=== PATIENT | female | born 1960 | race African-American/Black ===

== ENCOUNTER → 2018-03-14 14:36 | Outpatient (CLI) | payer OTHER, MEDICAID, SELFPAY ==
[2018-03-14 15:23] LABS: Hematocrit 40.3 % (36-46); Hemoglobin 13.3 g/dL (12.0-16.0)
[2018-03-14 15:55] LABS: Blood Urea Nitrogen 12 mg/dL (7-17); Calcium 9.6 mg/dL (8.4-10.2); Carbon Dioxide 34 mmol/L (22-32); Chloride 99 mmol/L (98-107); Estimated Glomerular Filt Rate > 60.0 mL/min (>60); Glucose 92 mg/dL (70-100); HEMOLYSIS < 15 (0-50); Potassium 3.8 mmol/L (3.4-5.1); Sodium 144 mmol/L (137-145)
[2018-03-15 10:14] LABS: Hemoglobin A1C% w Est Avg Glu 5.9 % (4.0-6.0)
== END ==
PROVIDERS: Visit Provider Nurse Practitioner Family
DX: I10 Essential (primary) hypertension (principal); R60.0 Localized edema; E11.9 Type 2 diabetes mellitus without complications
CPT/HCPCS: 36415; 80048; 83036; 85014; 85018

== ENCOUNTER → 2018-05-08 11:25 | Outpatient (CLI) | payer OTHER, MEDICAID, SELFPAY ==
[2018-05-08 12:11] LABS: Add Manual Diff / Slide Review NO; Basophils Percent Auto 0.3 % (0-2); Eosinophils Percent Auto 1.7 % (2-4); Hematocrit 38.4 % (36-46); Hemoglobin 12.7 g/dL (12.0-16.0); Mean Corpuscular HGB Conc 33.1 % (30-36); Mean Corpuscular Hemoglobin 28.6 PG (26-34); Mean Corpuscular Volume 86.3 fL (80-100); Monocytes Percent Auto 9.2 % (3-14); Neutrophils Absolute Auto 4400 /uL (3000-5900); Neutrophils Percent Auto 52.8 % (50-75); Platelet Count 224 X10^3/uL (150-400); Red Blood Cell Count 4.45 X10^6/uL (4.0-5.2); Red Cell Distribution Width 15.1 % (11.6-14.8); White Blood Cell Count 8.4 X10^3/uL (4.5-11.0)
[2018-05-08 12:30] LABS: Alanine Aminotransferase 67 IU/L (9-52); Albumin 4.7 g/dL (3.5-5.0); Albumin Globulin Ratio 1.4 (1.0-2.8); Alkaline Phosphatase 211 U/L (38-126); Aspartate Aminotransferase 78 IU/L (14-36); Bilirubin Total 0.5 mg/dL (0.2-1.3); Blood Urea Nitrogen 9 mg/dL (7-17); Calcium 9.6 mg/dL (8.4-10.2); Carbon Dioxide 30 mmol/L (22-32); Chloride 101 mmol/L (98-107); Estimated Glomerular Filt Rate > 60.0 mL/min (>60); Globulin 3.4 g/dL (1.7-4.1); Glucose 93 mg/dL (70-100); HEMOLYSIS < 15 (0-50); Potassium 4.6 mmol/L (3.4-5.1); Sodium 147 mmol/L (137-145); Total Protein 8.1 g/dL (6.3-8.2)
[2018-05-08 12:49] LABS: B Type Natriuretic Peptide < 100.0 (<100)
== END ==
PROVIDERS: PCP Family Medicine; Visit Provider Family Medicine
DX: R60.0 Localized edema (principal)
CPT/HCPCS: 36415; 80053; 83880; 85025

== ENCOUNTER → 2018-05-29 14:21 | Outpatient (CLI) | payer OTHER, MEDICAID, SELFPAY ==
--- NOTE | 2018-05-29 14:22 | DI.ECHO.S_ITS ---
[facility] +---------+ : : [address] : [address] : : : : [phone] : : : : Phone: [phone]+ Echocardiogram Report + + :Name: DAVID MCCARTY Study Date: 05/29/2018 Height: 66 in : :[facility] Weight: 245 lb : : Gender: Female BSA: 2.2 m2 : :: 1960 Age: 57 yrs BP: 120/60 mmHg: :Reason For Study: edema : : Performed By: Astrid Lowry : :Referring: SUSY MCCRAY : + + Interpretation Summary The left ventricle is normal in size. The ejection fraction is estimated to be 60-65%. There has been no significant change in LVEF since the previous study. The right ventricle is at the upper limits of normal in size. The right ventricular systolic function is normal. No significant valvular pathology seen. Procedure: A two-dimensional transthoracic echocardiogram with color flow and Doppler was performed. The study quality was technically adequate. Comparison is made with the echocardiogram of 05/17/2015. The heart rate ranged between 86-91 bpm during the study. Left Ventricle: Left ventricular wall thickness is borderline increased. The left ventricle is normal in size. There is no thrombus. The ejection fraction is estimated to be 60-65%. There has been no significant change since the previous study. There are no focal wall motion abnormalities. Diastolic parameters suggest a relaxation abnormality of the left ventricle, consistent with probable normal filling pressures. Right Ventricle: The right ventricle is at the upper limits of normal in size. The right ventricular systolic function is normal. Atria: The left atrial size is normal. There has been no significant change since the previous study. Right atrium is small. There is no Doppler evidence for an interatrial shunt. Mitral Valve: The mitral valve leaflets appear borderline thickened, but open well. There is trace mitral regurgitation. Aortic Valve: The aortic valve is normal in structure and function. There is no aortic valve stenosis. No aortic regurgitation is present. Tricuspid Valve: The tricuspid valve is normal in structure and function. Pulmonary artery pressures cannot be estimated because of the lack of a measurable TR jet velocity. There is a trace or physiologic amount of tricuspid regurgitation. Pulmonic Valve: The pulmonic valve is not well seen, but is grossly normal. There is no pulmonic valvular regurgitation. Great Vessels: The aortic root is normal size. The ascending aorta is normal in size. The aortic arch is normal in size. The pulmonary artery is normal size. The IVC was not well visualized secondary to technical limitations making central venous pressures difficult to estimate. Pericardium/ Pleura There is an anterior echo-free space consistent with a fat pad. There is no pleural effusion. MMode/2D Measurements & Calculations LVIDd: 4.6 cm LVOT diam: 2.2 cm LVIDs: 2.7 cm Ao root diam: 3.0 cm FS: 40.1 % asc Aorta Diam: 3.2 cm IVSd: 1.1 cm Ao Arch Diam (Prox Trans): 2.6 cm LVPWd: 0.95 cm LV ennis. diameter/BSA (cm/m^2): 2.1 LV sys. diameter/BSA (cm/m^2): 1.3 LA A2 area: 14.6 cm2 RA long axis: 4.7 cm LA A4 area: 15.4 cm2 RA area: 10.1 cm2 LA length (vol): 5.6 cm RA vol: 18.6 ml LA vol: 34.3 ml RA : 8.5 ml/m2 LA vol index: 15.7 ml/m2 Doppler Measurements & Calculations Ao V2 max: 130.4 cm/sec LVOT Max Rubén: 108.7 cm/sec Ao V2 mean: 86.2 cm/sec LV V1 max P.7 mmHg Ao max P.8 mmHg LV V1 VTI: 16.3 cm Ao mean P.3 mmHg ADRIAN(I,D): 3.2 cm2 Ao V2 VTI: 20.1 cm ADRIAN(V,D): 3.3 cm2 sev ratio: 0.81 ADRIAN indexed to BSA (cm^2/m^2): 1.5 MV E max rubén: 60.9 cm/sec MV A max rubén: 70.1 cm/sec MV E/A: 0.87 Med Peak E' Rubén: 7.6 cm/sec E/E' med: 8.0 Lat Peak E' Rubén: 8.7 cm/sec E/E' lat: 7.0 E/e' average: 7.5 MV dec time: 0.28 sec Reading Physician:MAJOR
== END ==
PROVIDERS: PCP Family Medicine; Visit Provider Family Medicine
DX: R60.0 Localized edema (principal); R53.83 Other fatigue
CPT/HCPCS: 93306

== ENCOUNTER → 2018-06-17 12:34 | Outpatient (CLI) | payer OTHER, MEDICAID, SELFPAY ==
[2018-06-17 13:11] LABS: Alanine Aminotransferase 95 IU/L (9-52); Albumin 4.8 g/dL (3.5-5.0); Albumin Globulin Ratio 1.3 (1.0-2.8); Alkaline Phosphatase 254 U/L (38-126); Aspartate Aminotransferase 128 IU/L (14-36); BUN Creatinine Ratio 22.9 (6-22); Bilirubin Total 1.1 mg/dL (0.2-1.3); Blood Urea Nitrogen 16 mg/dL (7-17); Calcium 9.9 mg/dL (8.4-10.2); Carbon Dioxide 24 mmol/L (22-32); Chloride 101 mmol/L (98-107); Estimated Glomerular Filt Rate > 60.0 mL/min (>60); Globulin 3.6 g/dL (1.7-4.1); Glucose 122 mg/dL (70-100); HEMOLYSIS < 15 (0-50); Hemoglobin A1C% w Est Avg Glu 6.7 % (4.0-6.0); Potassium 4.3 mmol/L (3.4-5.1); Sodium 142 mmol/L (137-145); Total Protein 8.4 g/dL (6.3-8.2)
== END ==
PROVIDERS: PCP Family Medicine; Visit Provider Family Medicine
DX: E11.9 Type 2 diabetes mellitus without complications (principal); I10 Essential (primary) hypertension
CPT/HCPCS: 36415; 80053; 83036

== ENCOUNTER → 2018-07-25 09:05 | Outpatient (CLI) | payer OTHER, MEDICAID, SELFPAY ==
--- NOTE | 2018-07-25 09:07 | DI.US.S_ITS ---
PROCEDURE: US ABDOMEN COMPLETE INDICATIONS: ELEVATED LFTS TECHNIQUE: Real-time scanning was performed of the abdominal and retroperitoneal organs, with image documentation. COMPARISON: [facility], US, ABDOMEN COMPLETE, 12/21/2008, 11:13. FINDINGS: Liver: The liver is enlarged, measuring 22.2 cm in length, and there is coarse echogenic appearance with micronodular contour in keeping with cirrhosis. No focal hepatic lesion seen. Gallbladder: Negative. No sonographic Scott's sign Biliary ducts: Intrahepatic bile ducts are non-dilated. Extrahepatic bile duct caliber measures 6 mm. Normal is 6-7 mm or less in diameter, or 10 mm or less post-cholecystectomy. Pancreas: Visualized portions of the pancreas are sonographically normal. Spleen: Spleen is normal in size and homogeneous in echotexture. Kidneys: Kidneys are normal in size and echotexture. Right kidney measures 11.6 cm long; left kidney measures 12.5 cm long. No hydronephrosis or nephrolithiasis. No solid masses. Aorta: Visualized aorta is normal in caliber at less than 3 cm. Iliacs: Not well-visualized sonographically. IVC: Intrahepatic inferior vena cava is patent. Miscellaneous: No free abdominal fluid. IMPRESSION: Hepatomegaly and coarse echogenic appearance suggesting cirrhosis. Please correlate with LFTs. Dictated by: Anam Nguyen M.D. on 07/25/2018 at 15:18 Approved by: Anam Nguyen M.D. on 07/25/2018 at 15:20
== END ==
PROVIDERS: PCP Family Medicine; Visit Provider Family Medicine
DX: R74.8 Abnormal levels of other serum enzymes (principal); R89.9 Unspecified abnormal finding in specimens from other organs, systems and tissues; R16.0 Hepatomegaly, not elsewhere classified
CPT/HCPCS: 76700

== ENCOUNTER → 2019-01-06 10:26 | Outpatient (CLI) | payer OTHER, MEDICAID, SELFPAY ==
[2019-01-07 15:20] LABS: Creatinine Urine Random 20.7 mg/dL
[2019-01-07 15:24] LABS: Microalbumi Creatinin Ratio Ur 72.4 ug/mg CR (<30); Microalbumin Urine Random 1.5 mg/dL (0-1.6)
== END ==
PROVIDERS: PCP Family Medicine; Visit Provider Family Medicine
DX: E11.9 Type 2 diabetes mellitus without complications (principal)
CPT/HCPCS: 82043; 82570

== ENCOUNTER 2019-04-22 13:35 | Day surgery (SDC) | payer OTHER, MEDICAID, SELFPAY ==
[2019-04-22 14:03] VITALS: BP 120/79; PULSE 83; RESP 16; TEMP 36.3; O2SAT 92
[2019-04-22] MEDS: SODIUM CHLORIDE 0.9% 1,000 ML 200 ML IV (14:23)
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
--- NOTE | 2019-04-22 16:45 | SUR.OPER ---
PATIENT RECIEVED 300 OF FENTNYL AND 8 OF VERSED AND WAS STILL TOO AWAKE FOR PROCEDURE. ANESTHESIA CAME IN AT 1635 TO PROVIDE SEDATION IN ORDER TO PROCEED.
[2019-04-22] MEDS: MIDAZOLAM 5 MG/5 ML VIAL IV (16:59)
[2019-04-22] MEDS: fentaNYL 250 MCG/5 ML INJ IV (16:59)
--- NOTE | 2019-04-22 17:01 | SUR.OPER ---
ASA [address] CEE, ASA BUMPED UP TO 3E PER DR. DANIELLE
[2019-04-22] MEDS: diphenhydrAMINE 50 MG/ML VIAL 25 MG IV ×2 (17:04→17:45)
--- NOTE | 2019-04-22 17:12 | PM.OP.ENDO ---
Operative Date/Time/Diagnoses Date of procedure: 04/22/19 Time of procedure: 17:12 Pre-op diagnosis: History of colon polyps Post-op diagnosis: same Procedure & Clinicians Study performed: Surveillance colonoscopy Same procedure as scheduled: Yes Indications: personal history of colon polyps Surgeon: Melissa Rosenthal Procedure Notes SCOAP/Timeout: Performed Procedure in detail: The patient was brought to the room and placed in left lateral decubitus position with all bony prominences padded. A time-out was performed and then the patient was given procedural sedation starting with 4 mg of Versed and 100 mg of fentanyl. Vitals were monitored throughout the procedure and remained stable. Once adequately sedated the procedure was begun. A rectal exam was performed revealing no abnormalities. At this point the patient was quite awake and complain that she felt the rectal exam. She was given additional medication gradually, up to 8 mg of Versed and 300 mg of fentanyl. She continued to be well awake and verbalized concerned about going ahead with the procedure. I felt that I had given her a significant amount of medication with very little effect on her, and I felt it was unsafe to continue without an anesthesiologist. Dr. Coley came in to assess the patient. After a brief discussion with the patient, the decision was made to proceed with colonoscopy under MAC sedation. Sedation was then induced by Dr. Coley who managed the patient's vitals and sedation throughout the procedure. The patient remained stable and appeared comfortable throughout the procedure. The colonoscope was then introduced to the rectum and advanced to the cecum in the usual fashion. The cecum was identified by the appendiceal orifice, the mucosal try fold, and the ileocecal valve. The scope was then retracted while rotating side to side and examining each mucosal fold. No polyps were found. Large diverticula were found throughout their sigmoid colon, without evidence of active diverticulitis. At the conclusion procedure retroflexion was performed and small grade 1-2 internal hemorrhoids without stigmata of bleeding were seen. The scope was then withdrawn from the rectum the procedure was concluded. The patient tolerated the procedure well was transferred to the PACU in stable condition. Scope withdrawal time: 14 Sedation minutes: 54 Findings: diverticulosis Specimen(s): none sent Complications: other (Patient unable to tolerate procedure under Versed and fentanyl sedation, and required propofol and monitored anesthesia care to complete the procedure safely) Impression: No polyps. Rectosigmoid diverticulosis Post-procedure Recommendations: Colonscopy in 10 years (Her next colonoscopy should be performed with monitored anesthesia care by an anesthesiologist.) Follow up: as needed Disposition: PACU
[2019-04-22 17:18] VITALS: BP 147/116; PULSE 85; RESP 22; TEMP 37.2; O2SAT 96
[2019-04-22 17:22] VITALS: BP 146/57; PULSE 87; RESP 26; TEMP 37.1; O2SAT 92
[2019-04-22 17:27] VITALS: BP 141/61; PULSE 82; RESP 14; TEMP 37.2; O2SAT 93
[2019-04-22 17:34] VITALS: BP 142/60; PULSE 93; RESP 15; O2SAT 93
[2019-04-22 17:50] VITALS: BP 140/60; PULSE 90; RESP 16; O2SAT 92
== END 2019-04-22 18:00 | disposition home or self-care (01) ==
PROVIDERS: Surgery; PCP Family Medicine; Visit Provider Surgery
PROC: 0DJD8ZZ Inspection of Lower Intestinal Tract, Via Natural or Artificial Opening Endoscopic (ICD-10-PCS; CPT 45378; principal; 2019-04-22 15:00)
DX: Z86.010 Personal history of colon polyps (principal); K57.30 Diverticulosis of large intestine without perforation or abscess without bleeding; K64.0 First degree hemorrhoids; E11.9 Type 2 diabetes mellitus without complications; Z79.84 Long term (current) use of oral hypoglycemic drugs
CPT/HCPCS: 45378; 99152; 99153; J1200; J2250; J2704; J3010

== ENCOUNTER → 2019-05-16 10:28 | Outpatient (CLI) | payer OTHER, MEDICAID, SELFPAY ==
--- NOTE | 2019-05-16 10:32 | DI.RAD.S_ITS ---
PROCEDURE: XR PELVIS 1-2V INDICATIONS: pelvic pain, R side TECHNIQUE: 1 view(s) of the pelvis acquired. COMPARISON: None. FINDINGS: Bones: No fractures or dislocations. No suspicious bony lesions. There is mild symmetric degenerative joint disease in hips and sacroiliac joints bilaterally. Soft tissues: Visualized bowel gas pattern is normal. No suspicious soft tissue calcifications. IMPRESSION: No fracture or dislocation. Mild symmetric degenerative joint disease. Dictated by: Carisa Pepper M.D. on 05/16/2019 at 18:15 Approved by: Carisa Pepper M.D. on 05/16/2019 at 18:16
== END ==
PROVIDERS: PCP Family Medicine; Visit Provider Family Medicine
DX: R10.2 Pelvic and perineal pain (principal); M47.818 Spondylosis without myelopathy or radiculopathy, sacral and sacrococcygeal region; M16.0 Bilateral primary osteoarthritis of hip
CPT/HCPCS: 72170

== ENCOUNTER → 2019-08-05 09:55 | Outpatient (CLI) | payer OTHER, MEDICAID, SELFPAY ==
[2019-08-05 11:12] LABS: Add Manual Diff / Slide Review NO; Basophils Absolute Auto 100 /uL (0-100); Basophils Percent Auto 0.5 % (0-2); Eosinophils Absolute Auto 100 /uL (0-450); Eosinophils Percent Auto 1.2 % (2-4); Hematocrit 38.6 % (36-46); Hemoglobin 12.6 g/dL (12.0-16.0); Lymphocytes Absolute Auto 2800 /uL (1100-4500); Lymphocytes Percent Auto 29.6 % (25-40); Mean Corpuscular HGB Conc 32.8 % (30-36); Mean Corpuscular Hemoglobin 28.8 PG (26-34); Monocytes Absolute Auto 900 /uL (0-900); Monocytes Percent Auto 9.8 % (3-14); Neutrophils Absolute Auto 5700 /uL (1500-7000); Neutrophils Percent Auto 58.9 % (50-75); Platelet Count 254 X10^3/uL (150-400); Red Blood Cell Count 4.39 X10^6/uL (4.0-5.2); Red Cell Distribution Width 14.9 % (11.6-14.8); White Blood Cell Count 9.6 X10^3/uL (4.5-11.0)
[2019-08-05 11:28] LABS: Hemoglobin A1C% w Est Avg Glu 5.8 % (4.0-6.0)
[2019-08-05 11:41] LABS: Alanine Aminotransferase 58 IU/L (<35); Albumin 4.9 g/dL (3.5-5.0); Albumin Globulin Ratio 1.2 (1.0-2.8); Alkaline Phosphatase 133 U/L (38-126); Aspartate Aminotransferase 71 IU/L (14-36); BUN Creatinine Ratio 28.2 (6-22); Bilirubin Total 0.9 mg/dL (0.2-1.3); Blood Urea Nitrogen 48 mg/dL (7-17); Calcium 10.9 mg/dL (8.4-10.2); Carbon Dioxide 29 mmol/L (22-32); Chloride 93 mmol/L (98-107); Estimated Glomerular Filt Rate 30.9 mL/min (>60); Globulin 4.1 g/dL (1.7-4.1); Glucose 130 mg/dL (70-100); HEMOLYSIS < 15 (0-50); Potassium 5.2 mmol/L (3.4-5.1); Sodium 138 mmol/L (137-145)
== END ==
PROVIDERS: PCP Family Medicine; Visit Provider Family Medicine
DX: E11.9 Type 2 diabetes mellitus without complications (principal); R10.9 Unspecified abdominal pain
CPT/HCPCS: 36415; 80053; 83036; 85025

== ENCOUNTER → 2019-09-03 09:52 | Outpatient (CLI) | payer OTHER, MEDICAID, SELFPAY ==
--- NOTE | 2019-09-03 09:54 | DI.CT.S_ITS ---
PROCEDURE: CT ABDOMEN PELVIS W CON INDICATIONS: persistent, severe at times, right sided abd pain TECHNIQUE: After the administration of intravenous contrast, 5 mm thick sections acquired from the diaphragm to the symphysis. Oral contrast also was administered. 5 mm coronal and sagittal reformats were acquired. For radiation dose reduction, the following was used: automated exposure control, adjustment of mA and/or kV according to patient size. COMPARISON: [facility], CT, ABDOMEN/PELVIS WITH CONTRAST, 03/08/2017, 9:52. [facility], CT, ABDOMEN/PELVIS WITH CONTRAST, 07/11/2012, 11:22. FINDINGS: Image quality: Excellent. ABDOMEN: Lung bases: Lung bases are clear. Heart size is normal. Solid organs: Liver is enlarged in size and normal in enhancement, but there is nodular margination along the hepatic capsule to the degree that cirrhosis is suspected. Gallbladder appears normal, partially contracted. Biliary system is non dilated. Pancreas enhances normally. Spleen is normal in size and enhancement. No adrenal nodules. Kidneys demonstrate normal size and enhancement, without hydronephrosis. Peritoneum and bowel: Bowel loops demonstrate normal wall thickness and caliber. No free fluid or air. Nodes and vessels: No retroperitoneal or mesenteric adenopathy by size criteria. Aorta and inferior vena cava are normal in size. Miscellaneous: No ventral hernias. PELVIS: Genitourinary: Bladder wall thickness is normal. Miscellaneous: No inguinal hernias or adenopathy. Bones: No suspicious bony lesions. No vertebral body compression fractures. IMPRESSION: Hepatomegaly without mass, mild nodular margination along the hepatic capsular border. Early cirrhosis is the presumed cause. No varices or ascites is found. The spleen is not enlarged. No sign of gallbladder inflammation or bile duct distention. Dictated by: Terry Hope M.D. on 09/03/2019 at 11:43 Approved by: Terry Hope M.D. on 09/03/2019 at 11:45
== END ==
PROVIDERS: PCP Family Medicine; Referring Provider Family Medicine; Visit Provider Family Medicine
DX: R10.9 Unspecified abdominal pain (principal); R16.0 Hepatomegaly, not elsewhere classified
CPT/HCPCS: 74177; Q9967

== ENCOUNTER → 2019-10-27 10:31 | Outpatient (CLI) | payer OTHER, MEDICAID, SELFPAY ==
--- NOTE | 2019-10-27 10:34 | DI.RAD.S_ITS ---
PROCEDURE: XR SHOULDER RT MIN 2V INDICATIONS: pain x1 month, fall TECHNIQUE: 3 views of the shoulder were acquired. COMPARISON: None. FINDINGS: Bones: No fractures or dislocations. No suspicious bony lesions. Visualized ribs appear intact. AC and glenohumeral joint degenerative spurring. There is minimal joint space narrowing Soft tissues: No suspicious soft tissue calcifications. IMPRESSION: Degenerative changes as above No fracture identified If the patient's pain or other symptoms persist, consider further evaluation with MRI Dictated by: Anam Nguyen M.D. on 10/27/2019 at 11:35 Approved by: Anam Nguyen M.D. on 10/27/2019 at 11:36
== END ==
PROVIDERS: PCP Family Medicine; Referring Provider Family Medicine; Visit Provider Family Medicine
DX: M25.511 Pain in right shoulder (principal)
CPT/HCPCS: 73030

== ENCOUNTER → 2020-02-09 11:11 | Outpatient (CLI) | payer OTHER, MEDICAID, SELFPAY ==
[2020-02-09 12:15] LABS: Add Manual Diff / Slide Review NO; Basophils Absolute Auto 0 /uL (0-100); Basophils Percent Auto 0.5 % (0-2); Eosinophils Absolute Auto 200 /uL (0-450); Eosinophils Percent Auto 2.8 % (2-4); Hematocrit 32.5 % (36-46); Hemoglobin 10.8 g/dL (12.0-16.0); Lymphocytes Absolute Auto 2800 /uL (1100-4500); Lymphocytes Percent Auto 34.2 % (25-40); Mean Corpuscular HGB Conc 33.1 % (30-36); Mean Corpuscular Hemoglobin 28.3 PG (26-34); Mean Corpuscular Volume 85.5 fL (80-100); Monocytes Absolute Auto 700 /uL (0-900); Monocytes Percent Auto 8.3 % (3-14); Neutrophils Absolute Auto 4500 /uL (1500-7000); Neutrophils Percent Auto 54.2 % (50-75); Platelet Count 243 X10^3/uL (150-400); Red Cell Distribution Width 14.3 % (11.6-14.8); White Blood Cell Count 8.3 X10^3/uL (4.5-11.0)
[2020-02-09 12:51] LABS: BUN Creatinine Ratio 20.7 (6-22); Blood Urea Nitrogen 46 mg/dL (7-17); Calcium 10.4 mg/dL (8.4-10.2); Carbon Dioxide 24 mmol/L (22-32); Chloride 95 mmol/L (98-107); Estimated Glomerular Filt Rate 22.6 mL/min (>60); Glucose 122 mg/dL (70-100); HEMOLYSIS < 15 (0-50); Potassium 4.3 mmol/L (3.4-5.1); Sodium 134 mmol/L (137-145)
[2020-02-09 12:52] LABS: HEMOLYSIS < 15 (0-50); Iron 80 ug/dL (37-170)
[2020-02-09 13:03] LABS: Percent Iron Saturation 28 % (15-50); Total Iron Binding Capacity 288 ug/dL (265-497); Transferrin 227 mg/dL (206-381)
[2020-02-09 13:23] LABS: Ferritin 352 ng/mL (11-264)
[2020-02-09 14:34] LABS: UR Morphine/Opiate cutoff 300 Positive (Negative); Ur Creatinine Normal (Normal); Ur Specific Gravity Normal (Normal); Urine Amphetamines Negative (Negative); Urine Barbiturates Negative (Negative); Urine Benzodiazepines Positive (Negative); Urine Cocaine Negative (Negative); Urine MDMA Negative (Negative); Urine Methamphetamines Negative (Negative); Urine Phencyclidine Negative (Negative); Urine Tetrahydrocannabinol Negative (Negative); Urine pH Normal (Normal)
[2020-02-09 14:35] LABS: Urine Methadone Negative (Negative); Urine Oxycodone Negative (Negative); Urine Tricyclic Antidepressant Positive (Negative)
== END ==
PROVIDERS: PCP Family Medicine; Referring Provider Family Medicine; Visit Provider Family Medicine
DX: D64.9 Anemia, unspecified (principal); Z79.891 Long term (current) use of opiate analgesic; N28.9 Disorder of kidney and ureter, unspecified
CPT/HCPCS: 36415; 80048; 80305; 82728; 83540; 83550; 85025

== ENCOUNTER 2020-04-06 08:25 | Observation (INO) | payer OTHER, MEDICAID, SELFPAY ==
[2020-04-06] VITALS (24 sets, daily range): BP systolic 112–174; BP diastolic 63–98; PULSE 102–120; RESP 17–18; TEMP 35.9–37.2; O2SAT 91–100; BMI 34.7
--- NOTE | 2020-04-06 08:49 | PC.NURSE ---
patient denies trauma to right leg. States she has needed to crawl around her house to do anything. States she has to sleep on the couch for comfort. Seen in ED at [facility] on or sunday. Patient arrived EMS to room 5 with knee splint in place on right leg. Patient arrived with allison wrap to right ankle, states her friend that thinks shes a nurse put the wrap on thinking it would help. Patient reports no ankle pain. Visible swelling to left knee. Knee is warm to touch. Scar from knee replacment present on anterior knee. States pain is all over and she is painful to palpation on all aspects of knee.
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
--- NOTE | 2020-04-06 09:09 | PC.NURSE ---
Upon arrival to ER patient requesting to use the bedpan. While assisting patient on bedpan patient grabbed this RN's arm. Patient was asked not to grab my arm and guided patient to grab hand rail. Patient then refused to speak to this writter.
[2020-04-06 09:33] LABS: Add Manual Diff / Slide Review NO; Basophils Absolute Auto 200 /uL (0-100); Basophils Percent Auto 0.9 % (0-2); Eosinophils Absolute Auto 0 /uL (0-450); Eosinophils Percent Auto 0.1 % (2-4); Hematocrit 31.4 % (36-46); Hemoglobin 10.3 g/dL (12.0-16.0); Lymphocytes Absolute Auto 2100 /uL (1100-4500); Lymphocytes Percent Auto 12.5 % (25-40); Mean Corpuscular HGB Conc 32.9 % (30-36); Mean Corpuscular Hemoglobin 27.8 PG (26-34); Mean Corpuscular Volume 84.4 fL (80-100); Monocytes Absolute Auto 2600 /uL (0-900); Monocytes Percent Auto 15.6 % (3-14); Neutrophils Absolute Auto 11900 /uL (1500-7000); Neutrophils Percent Auto 70.9 % (50-75); Platelet Count 299 X10^3/uL (150-400); Red Blood Cell Count 3.72 X10^6/uL (4.0-5.2); Red Cell Distribution Width 14.4 % (11.6-14.8); White Blood Cell Count 16.8 X10^3/uL (4.5-11.0)
[2020-04-06 09:44] LABS: Creatine Kinase 469 U/L (30-135)
[2020-04-06 09:46] LABS: Ethanol (ETOH) < 10 mg/dL
[2020-04-06 09:57] LABS: NT-proBNP (BNP-Adult 18+) 145 pg/mL (<125); Troponin I < 0.012 ng/mL (0.01-0.034)
[2020-04-06 09:59] LABS: CKMB % Relative Index 0.8 % (1.5-5.0); Creatine Kinase MB 3.76 ng/mL (<2.37)
[2020-04-06 10:40] LABS: D Dimer 658 ng/mL (<230)
[2020-04-06 10:58] LABS: HEMOLYSIS < 15 (0-50)
[2020-04-06 11:00] LABS: Alanine Aminotransferase 53 IU/L (<35); Albumin 4.5 g/dL (3.5-5.0); Albumin Globulin Ratio 0.9 (1.0-2.8); Alkaline Phosphatase 187 U/L (38-126); Aspartate Aminotransferase 53 IU/L (14-36); BUN Creatinine Ratio 25.2 (6-22); Bilirubin Total 2.8 mg/dL (0.2-1.3); Blood Urea Nitrogen 40 mg/dL (7-17); Calcium 10.7 mg/dL (8.4-10.2); Carbon Dioxide 26 mmol/L (22-32); Chloride 97 mmol/L (98-107); Estimated Glomerular Filt Rate 33.2 mL/min (>60); Globulin 4.9 g/dL (1.7-4.1); Glucose 121 mg/dL (70-100); Potassium 3.8 mmol/L (3.4-5.1); Sodium 136 mmol/L (137-145); Total Protein 9.4 g/dL (6.3-8.2)
[2020-04-06 11:23] LABS: C-Reactive Protein Quant 30.7 mg/dL (<1.0)
--- NOTE | 2020-04-06 12:32 | DI.RAD.S_ITS ---
PROCEDURE: XR ANKLE LT MIN 3V INDICATIONS: Bilateral ankle pain TECHNIQUE: 3 views of the ankle were acquired. COMPARISON: [facility], CR, XR ANKLE RT MIN 3V, 04/06/2020, 12:44. FINDINGS: Bones: No fractures or dislocations. Ankle mortise is normally aligned. No suspicious bony lesions. Soft tissues: Ankle soft tissue swelling is noted. No tibiotalar joint effusion. Achilles tendon appears normal. IMPRESSION: No acute ankle fracture or dislocation. Ankle soft tissue swelling. Dictated by: Edmund Duvall M.D. on 04/06/2020 at 13:54 Approved by: Edmund Duvall M.D. on 04/06/2020 at 13:55
--- NOTE | 2020-04-06 12:32 | DI.RAD.S_ITS ---
PROCEDURE: XR ANKLE RT MIN 3V INDICATIONS: Bilateral ankle pain TECHNIQUE: 3 views of the ankle were acquired. COMPARISON: None. FINDINGS: Bones: Patient is status post prior internal fixation of distal fibular shaft and distal tibial fibular syndesmosis. Ankle alignment is anatomic. No gross hardware loosening or failure. No gross acute fracture or dislocation. Corticated fragment adjacent to tip of medial malleolus is noted consistent with old healed injury. Soft tissues: Soft tissue swelling around ankle joint is noted. No tibiotalar joint effusion. Achilles tendon appears normal. IMPRESSION: No gross acute ankle fracture or dislocation. Prior fixation of distal fibular shaft and distal tibial fibular syndesmosis. Intact ankle mortise. No gross hardware complication. Ankle soft tissue swelling. Dictated by: Edmund Duvall M.D. on 04/06/2020 at 13:50 Approved by: Edmund Duvall M.D. on 04/06/2020 at 13:54
--- NOTE | 2020-04-06 12:38 | DI.US.S_ITS ---
PROCEDURE: US PERIPH VENOUS LOW EXTREM BI INDICATIONS: Bilateral lower extremity pain. Elevated D dimer. TECHNIQUE: Real-time imaging, as well as color and pulse Doppler interrogation, were performed of the deep veins of both legs from the inguinal ligament to the popliteal fossa. COMPARISON: None. FINDINGS: Right: The common femoral, femoral and popliteal veins are normally compressible, and free of intraluminal thrombus. Color and pulse Doppler demonstrate normal phasic intravascular flow. There is normal augmentation response to distal compression maneuver. Left: The common femoral, femoral and popliteal veins are normally compressible, and free of intraluminal thrombus. Color and pulse Doppler demonstrate normal phasic intravascular flow. There is normal augmentation response to distal compression maneuver. IMPRESSION: Negative for deep venous thrombosis. Dictated by: Merritt Hill M.D. on 04/06/2020 at 12:28 Approved by: Merritt Hill M.D. on 04/06/2020 at 12:28
[2020-04-06 12:59] LABS: Lactate (Lactic Acid) 1.4 mmol/L (0.7-2.1)
[2020-04-06] MEDS: HYDROMORPHONE 1 MG INJ IV (13:06)
[2020-04-06 13:11] LABS: Uric Acid 15.1 mg/dL (2.5-6.2)
[2020-04-06] MEDS: methylPREDNISolone 125 MG/2 ML VIAL IV (13:47)
--- NOTE | 2020-04-06 15:12 | PC.NURSE ---
Provider notified and aware of tachycardia
--- NOTE | 2020-04-06 16:17 | PC.NURSE ---
After multiple attempts w/ multiple staff pt is unable to stand and almost fell x 3 w/ staff preventing fall. Pt states she lives alone and is unable to care for herself. Provider aware and will plan for admission.
[2020-04-06 17:27] LABS: COVID19 -Nasal RAPID Negative (Negative)
[2020-04-06] MEDS: SODIUM CHLORIDE 0.9% 1,000 ML 100 ML IV (20:14)
--- NOTE | 2020-04-06 20:26 | PC.NURSE ---
Pt arrived from ED @ 1900 Alert/oriented. Lungs clear, SpO2 96% RA C/o severe pain in feet related to gout. IVF hung by RN as per orders. Pt oriented to room & call system. Call light w/in reach, bed alarm on for pt safety.
[2020-04-06] MEDS: INSULIN ASPART 100 UNIT/ML INSULN PEN SUBCUT (21:51)
[2020-04-06] MEDS: HEPARIN 5,000 UNIT/ML VIAL 5000 UNIT SUBCUT (22:16)
--- NOTE | 2020-04-06 22:22 | PC.NURSE ---
Pt VSS, A and O varied. Arrived on unit at approx 1900, speech slurred, rating px 10/10 bilateral ankles but was able to crab walk pushing with her ankles with no evidence of pain. She opted to roll from the gurney to the bed. She was uncooperative with staff initially, but after a nap she was more pleasant. Pt did not appreciate our turkey sandwich, she wanted pancakes, and threw it in the garbage. She denied she was a diabetic. Initially she refused an IV but eventually agreed. She is very hard to understand. [place] She refused to discuss her med list, stating she never takes any drugs. Also perhaps 2/2 her originally being DC'd from the ER, she was difficult to install in [place], but is now, and is not in the [facility]. Pharm could not fix the prob. She is in the [facility] as a temporary patient. Coordinator aware.
[2020-04-06] MEDS: allopurinoL 100 MG TABLET PO (22:54)
[2020-04-07] VITALS (12 sets, daily range): BP systolic 105–138; BP diastolic 55–82; PULSE 70–81; RESP 16–18; TEMP 35.8–36.6; O2SAT 93–97
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
[2020-04-07 05:20] LABS: Add Manual Diff / Slide Review NO; Basophils Absolute Auto 0 /uL (0-100); Basophils Percent Auto 0.2 % (0-2); Eosinophils Absolute Auto 0 /uL (0-450); Hematocrit 29.4 % (36-46); Hemoglobin 9.7 g/dL (12.0-16.0); Lymphocytes Absolute Auto 1300 /uL (1100-4500); Mean Corpuscular HGB Conc 32.9 % (30-36); Mean Corpuscular Volume 85.2 fL (80-100); Monocytes Absolute Auto 1600 /uL (0-900); Monocytes Percent Auto 11.3 % (3-14); Neutrophils Absolute Auto 11200 /uL (1500-7000); Neutrophils Percent Auto 79.5 % (50-75); Platelet Count 293 X10^3/uL (150-400); Red Blood Cell Count 3.46 X10^6/uL (4.0-5.2); Red Cell Distribution Width 14.3 % (11.6-14.8); White Blood Cell Count 14.1 X10^3/uL (4.5-11.0)
[2020-04-07 05:26] LABS: BUN Creatinine Ratio 32.7 (6-22); Blood Urea Nitrogen 51 mg/dL (7-17); Calcium 10.2 mg/dL (8.4-10.2); Carbon Dioxide 27 mmol/L (22-32); Chloride 98 mmol/L (98-107); Glucose 174 mg/dL (70-100); HEMOLYSIS < 15 (0-50); Potassium 4.1 mmol/L (3.4-5.1); Sodium 137 mmol/L (137-145)
[2020-04-07 05:40] LABS: Uric Acid 15.8 mg/dL (2.5-6.2)
[2020-04-07] MEDS: SODIUM CHLORIDE 0.9% 1,000 ML 100 ML IV ×2 (06:20→16:52)
[2020-04-07 06:28] LABS: Procalcitonin 0.27 ng/mL (<0.5)
[2020-04-07] MEDS: COLCHICINE 0.6 MG TABLET 1.2 MG PO (07:51)
[2020-04-07] MEDS: allopurinoL 100 MG TABLET PO (07:51)
[2020-04-07 08:08] LABS: UR Morphine/Opiate cutoff 300 Negative (Negative); Ur Creatinine Normal (Normal); Ur Specific Gravity Normal (Normal); Urine Amphetamines Negative (Negative); Urine Barbiturates Negative (Negative); Urine Benzodiazepines Positive (Negative); Urine Cocaine Negative (Negative); Urine MDMA Negative (Negative); Urine Methadone Negative (Negative); Urine Methamphetamines Negative (Negative); Urine Oxycodone Negative (Negative); Urine Phencyclidine Negative (Negative); Urine Tetrahydrocannabinol Negative (Negative); Urine Tricyclic Antidepressant Positive (Negative); Urine pH Normal (Normal)
[2020-04-07] MEDS: INSULIN ASPART 100 UNIT/ML INSULN PEN SUBCUT ×4 (08:43→22:31)
[2020-04-07] MEDS: predniSONE 20 MG TABLET 40 MG PO (08:55)
[2020-04-07] MEDS: COLCHICINE 0.6 MG TABLET PO (08:56)
[2020-04-07] MEDS: HEPARIN 5,000 UNIT/ML VIAL 5000 UNIT SUBCUT ×2 (08:57→22:29)
[2020-04-07] MEDS: ACETAMINOPHEN 325 MG TABLET 650 MG PO ×2 (09:15→17:59)
[2020-04-07] MEDS: OXYCODONE IR 5 MG TABLET PO ×2 (09:34→17:58)
--- NOTE | 2020-04-07 10:17 | DIET.PN ---
Dietary Progress Note RD attempted pt education for low-purine MNT, however pt altered mental status so not appropriate for education at this time. Will check back in afternoon or tomorrow am.
--- NOTE | 2020-04-07 11:05 | CM.DANOTE ---
DCP: Case received, EMR reviewed and met with patient. Introduced self and role. Was able to obtain some
--- NOTE | 2020-04-07 11:08 | CM.DANOTE ---
Addendum entered by Kary Tafoya 04/07/20 16:47: OT evaluation entered. PRODUCT CONSULTANT to evaluate and take over for safe d/c planning needs. Current recommendation from therapy is SNF. Patient is [employer] and Medicaid. Authorization will need to be obtained and contracted facility located for SNF placement. PRODUCT CONSULTANT attempted visit this afternoon. Patient with dietary at time of visit. Will request PRODUCT CONSULTANT see tomorrow 04-08-20. RAGHAV James Original Note: DCP: Case received, EMR reviewed and met with patient. Was able to get some information from patient regarding her living situation and baseline activity level. Dr. Blanco just came into the room, so assessment was brief. DCP assessment completed with information currently available. Patient is a 59 year old female who admitted yesterday evening to the care of the hospitalist team. PCP: Dr. Prince. Payer: confirmed: [facility] [employer]. Patient came to the hospital via ambulance secondary to knee pain, which had been occurring for several days. Patient holds current diagnosis of gout. She has history of alcohol abuse, which has been resolved for the last month. Her alcohol level was below 10. She also has history of cirrhosis of the liver, as well as diabetes. Met briefly with patient. Stated that she lives alone, and is from [place]. Her sister, Lucero, is still in [place]. She mentioned that she has been having to crawl around on the floor lately to get around. She does not drive. Stated, she has friends that help her if she needs assistance. Patient stated, how can I go home today if I can't even walk. She has P.T. orders as well. Patient also indicated that she had a son that in 2019. P: DCP to continue to follow. P.T. will be working with patient, and will look at their evaluation as well. Will give this case over to PRODUCT CONSULTANT, due to her complex history, and [facility] has accepted. Stormy Abebe RN/Trimmer Tailer
[2020-04-07 12:04] LABS: Ammonia (NH3) 27 umol/L (9-30)
--- NOTE | 2020-04-07 12:37 | P.PN_ITS ---
Subjective Subjective Date Patient Seen: 04/07/20 Interval history: Patient is 59-year-old female with history of non-insulin dependent diabetes, gout, CKD stage 3, chronic opioid use for arthritis pain in knees, chronic benzodiazepine use, past alcohol abuse, cirrhosis, depression, intracranial hemorrhage status post shawanda hole surgery 2016 admitted due to acute gouty arthropathy with inability to ambulate. Patient has severe pain in the ankles and unable to weight bear. She also rep orts pain in the buttocks from prolonged time on the ground at home although denies falling. Also has pain in the right elbow from gout. She has somewhat pressured speech with some anxiety but able to give detailed history of recent events leading to hospitalization. Exam Vital Signs (past 8 hours): - 04/07/20 05:00 04/07/20 07:40 04/07/20 09:00 Temperature 97.2 F L 96.4 F L Pulse Rate 81 72 Respiratory Rate 16 16 Blood Pressure 127/72 107/61 Pulse Oximetry 95 97 97 Oxygen Delivery Method Room Air Oxygen Flow Rate 0 Narrative Exam Narrative: General: Patient is alert and seems in pain Musculoskeletal: There is lateral swelling of the right ankle. There is warmth and tenderness of both ankles. There is some tenderness of the right elbow. Neurological: Alert, oriented to person and place, affect appears somewhat anxious, speech is somewhat pressured with possibly some difficulty expressing thoughts but without flight of ideas, and able to relate an accurate history Objective Labs Result Diagrams: 04/07/20 04:55 04/07/20 04:55 Labs: Laboratory Results - last 24 hr 04/06/20 04/06/20 04/06/20 09:25 09:25 16:18 WBC RBC Hgb Hct MCV MCH MCHC RDW Plt Count Neut % (Auto) Lymph % (Auto) [place] % (Auto) Eos % (Auto) Baso % (Auto) Neut # (Auto) Lymph # (Auto) [place] # (Auto) Eos # (Auto) Baso # (Auto) Sodium Potassium Chloride Carbon Dioxide BUN Creatinine Estimated GFR BUN/Creatinine Ratio Glucose Lactate 1.4 Uric Acid 15.1 H* Calcium Ammonia Procalcitonin U Opiates 300ng/mL cut Ur Oxycodone Screen Urine Methadone Screen Ur Barbiturates Screen U Tricyclic Antidepress Ur Phencyclidine Scrn Ur Amphetamines Screen U Methamphetamines Scrn Ur MDMA Scrn (Ecstasy) U Benzodiazepines Scrn Urine Cocaine Screen U Marijuana (THC) Screen COVID-19 PCR Negative 04/07/20 04/07/20 04/07/20 04:55 04:55 04:55 WBC 14.1 H RBC 3.46 L Hgb 9.7 L Hct 29.4 L MCV 85.2 MCH 28.0 MCHC 32.9 RDW 14.3 Plt Count 293 Neut % (Auto) 79.5 H Lymph % (Auto) 9.0 L [place] % (Auto) 11.3 Eos % (Auto) 0.0 L Baso % (Auto) 0.2 Neut # (Auto) 65567 H Lymph # (Auto) 1300 [place] # (Auto) 1600 H Eos # (Auto) 0 Baso # (Auto) 0 Sodium 137 Potassium 4.1 Chloride 98 Carbon Dioxide 27 BUN 51 H Creatinine 1.56 H Estimated GFR 34.0 L BUN/Creatinine Ratio 32.7 H Glucose 174 H Lactate Uric Acid 15.8 H* Calcium 10.2 Ammonia Procalcitonin U Opiates 300ng/mL cut Ur Oxycodone Screen Urine Methadone Screen Ur Barbiturates Screen U Tricyclic Antidepress Ur Phencyclidine Scrn Ur Amphetamines Screen U Methamphetamines Scrn Ur MDMA Scrn (Ecstasy) U Benzodiazepines Scrn Urine Cocaine Screen U Marijuana (THC) Screen COVID-19 PCR 04/07/20 04/07/20 04/07/20 04:55 05:45 11:43 WBC RBC Hgb Hct MCV MCH MCHC RDW Plt Count Neut % (Auto) Lymph % (Auto) [place] % (Auto) Eos % (Auto) Baso % (Auto) Neut # (Auto) Lymph # (Auto) [place] # (Auto) Eos # (Auto) Baso # (Auto) Sodium Potassium Chloride Carbon Dioxide BUN Creatinine Estimated GFR BUN/Creatinine Ratio Glucose Lactate Uric Acid Calcium Ammonia 27 Procalcitonin 0.27 U Opiates 300ng/mL cut Negative Ur Oxycodone Screen Negative Urine Methadone Screen Negative Ur Barbiturates Screen Negative U Tricyclic Antidepress Positive H Ur Phencyclidine Scrn Negative Ur Amphetamines Screen Negative U Methamphetamines Scrn Negative Ur MDMA Scrn (Ecstasy) Negative U Benzodiazepines Scrn Positive H Urine Cocaine Screen Negative U Marijuana (THC) Screen Negative COVID-19 PCR Assessment & Plan Assessment & Plan narrative: Patient is 59-year-old female with history of non- insulin dependent diabetes, gout, CKD stage 3, chronic opioid use for arthritis pain in knees, chronic benzodiazepine use, past alcohol abuse, cirrhosis, depression, intracranial hemorrhage status post shawanda hole surgery 2016 admitted due to acute gouty arthropathy with inability to ambulate. 1. Acute gouty flare, present on admission, active -patient was severe pain and inability to bear weight, involved joints are both ankles and right elbow -patient without redness or swelling but acute tenderness on palpation, no evidence of abscess or cellulitis. -uric acid level in the ER is 15.5. White count is elevated at 16.8 with an elevated CRP at 30.7. -the patient received methylprednisolone 125 mg in the ER -continue steroids with prednisone 40 mg daily, will likely need a slower taper -also continue colchicine 0.6 mg daily -oxycodone 5-10 mg every 4 hours as needed for severe pain -timing of initiating allopurinol should be not sooner than a couple of weeks once the acute flare-up has resolved -PT/OT consult 2. Altered mental status, acute, related to medication administration. -the patient has home medication of Valium 5 mg b.i.d. schedule, and has hydrocodone 7.5 mg/ibuprofen 200 mg as needed for pain -patient was initially somnolent and difficult to arouse without deep stimulation, patient alert as of morning of 04/07 -the patient received 1 mg of Dilaudid in the emergency room, medication likely potentiated with slow clearance due to cirrhosis. 3. Chronic kidney disease stage 3 -EGFR 34 -adjust medications and monitor renal function as needed 4. Type 2 diabetes -last A1c 6.1% -continue metformin 1000 mg q.d., sliding scale insulin 5. Opioid dependency for chronic pain -patient gets monthly prescription refills for 120 tabs hydrocodone-ibuprofen 7.5-200 mg reported for chronic arthritis pain in knees -in-hospital she is getting oxycodone for acute pain, monitor for excessive sedation 6. Benzodiazepine dependency -patient on Valium 5 mg b.i.d. monthly refills presumably for chronic anxiety, continue medication here to avoid acute withdrawal 7. History of depression -continue Lamictal 50 mg q.d. and fluoxetine 40 mg q.d. per home routine 8. History of Liver cirrhosis, chronic, stable -patient's bilirubin is 2.8 with an AST of 53 with ALT of 53 and alkaline phosphatase 187. -no evidence of jaundice no palpable hepatomegaly or evidence of ascites. -will cautiously dose medications for both hepatic and renal clearance. 9. Chronic hypertension -BP in normal range -continue losartan 100 mg q.d. -discontinue HCTZ due to severely elevated uric acid 10. Alcohol abuse, chronic, stable -history of alcohol abuse with last drink reported as 1 month ago. -tox screen finds alcohol level less than 10. -no evidence of tremor or withdrawal symptoms. 11. Anemia of undetermined chronicity -hemoglobin 9.7, patient has developed a new anemia 1st noted on blood work 02/09/2020 which showed hemoglobin 10.8, her previous hemoglobin was 12.6 on 08/05/2019 so this is a recent anemia -anemia may be on basis of renal failure versus iron deficiency or other cause -check iron profile, ferritin, B12 VTE prophylaxis: Heparin. IV fluid: Saline lock Diet: Medium constant carbohydrate, low purine Code status: Patient is unable to designate, patient is made full code. Her sister Ofelia Steinberg is the patient's emergency contact of record. Quality VTE Deep Vein Thrombosis/Pulmonary Embolism Present on Admission: No
[2020-04-07] MEDS: GABAPENTIN 100 MG CAPSULE PO ×2 (13:23→22:29)
[2020-04-07 13:57] LABS: Ferritin 785 ng/mL (11-264)
--- NOTE | 2020-04-07 14:57 | PC.NURSE ---
Alt thought process: This am oriented except for day and some events. Repeats questions, Information repeated several times. Kept asking to have her sister called in [place], eventually it was found to be [place]. MD made aware of changes in mental status. See his orders. Pt is better this afternoon and more oriented. Did work with PT, it is very painful for her to stand on her rt leg. Was premed prior to working with PT. Reports she has been comfortable in her chair. MD made aware of additional areas of swelling or pain which is the rt hip and the rt elbow.
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
--- NOTE | 2020-04-07 15:37 | DIET.PN ---
Dietary Progress Note Assessment: 59y F admitted c history of non-insulin dependent diabetes, gout, CKD stage 3, chronic opioid use for arthritis pain in knees, chronic benzodiazepine use, past alcohol abuse, cirrhosis, depression, intracranial hemorrhage status post shawanda hole surgery 2016 admitted due to acute gouty arthropathy with inability to ambulate referred to nutrition for gout education. Per pt chart, pt has been crawling on floor x2w because of joint pain. Pt reports being a [place] and eating a lot of seafood (crab, shrimp, sardines), pt has a hx of heavy etoh use. Pt reports enjoying to cook and likes making seafood and gumbo. Usual Day includes one main meal. Pt reports her joint pain got worse the day after eating tuna c cheese and crackers. HT: 167.6cm WT: 97.5kg BMI: 34.7 Labs: Uric Acid 15.5 H, WBC 16.8 H, CRP 30.7 H MNA: normal Fredo: 21 Nutrition Diagnosis: altered nutrition related laboratory values r/t gouty arthropathy and nutrition related knowledge deficit aeb uric acid 15.5, CRP 30.7, pt reports eating many high purine foods, pt not knowing which foods cause her pain. Interventions: 1. Educated pt on high purine foods which will cause gouty flare. Provided pt handout on low/moderate/high purine foods with recommendations for intake. Pt receptive to teaching and feels she can follow the reccs neyda if will help her feel better. Diet Order: CCD EER: limit high purine foods Monitoring/Evaluations: f/u as needed
[2020-04-07 17:55] LABS: HEMOLYSIS < 15 (0-50); Iron 53 ug/dL (37-170)
[2020-04-07 18:05] LABS: Percent Iron Saturation 26 % (15-50); Total Iron Binding Capacity 203 ug/dL (265-497); Transferrin 147 mg/dL (206-381)
[2020-04-07 18:13] LABS: Vitamin B12 654 pg/mL (239-931)
[2020-04-07] MEDS: SIMVASTATIN 20 MG TABLET PO (22:31)
[2020-04-08] VITALS (7 sets, daily range): BP systolic 105–126; BP diastolic 62–70; PULSE 70–87; RESP 16–18; TEMP 35.9–36.4; O2SAT 93–96
[2020-04-08] MEDS: SODIUM CHLORIDE 0.9% 1,000 ML 100 ML IV (03:25)
[2020-04-08] MEDS: BISACODYL 10 MG SUPP PR (03:46)
[2020-04-08 05:40] LABS: BUN Creatinine Ratio 45.7 (6-22); Blood Urea Nitrogen 58 mg/dL (7-17); Calcium 9.3 mg/dL (8.4-10.2); Carbon Dioxide 27 mmol/L (22-32); Chloride 102 mmol/L (98-107); Estimated Glomerular Filt Rate 43.1 mL/min (>60); Glucose 146 mg/dL (70-100); HEMOLYSIS < 15 (0-50); Potassium 3.9 mmol/L (3.4-5.1); Sodium 138 mmol/L (137-145)
[2020-04-08 08:43] LABS: Uric Acid 11.6 mg/dL (2.5-6.2)
[2020-04-08] MEDS: INSULIN ASPART 100 UNIT/ML INSULN PEN SUBCUT ×4 (09:25→21:18)
[2020-04-08] MEDS: GABAPENTIN 100 MG CAPSULE PO ×2 (09:26→16:24)
[2020-04-08] MEDS: FUROSEMIDE 40 MG TABLET PO (09:26)
[2020-04-08] MEDS: diazePAM 5 MG TABLET PO (09:26)
[2020-04-08] MEDS: FLUoxetine 20 MG CAPSULE 60 MG PO (09:26)
[2020-04-08] MEDS: COLCHICINE 0.6 MG TABLET PO ×2 (09:26→21:18)
[2020-04-08] MEDS: predniSONE 20 MG TABLET 40 MG PO (09:27)
[2020-04-08] MEDS: HEPARIN 5,000 UNIT/ML VIAL 5000 UNIT SUBCUT ×2 (09:27→21:17)
[2020-04-08] MEDS: lamoTRIgine 25 MG CHEW TABLET 50 MG PO (09:27)
[2020-04-08] MEDS: LOSARTAN 50 MG TABLET 100 MG PO (09:27)
[2020-04-08] MEDS: METFORMIN HCL 500 MG TABLET 1000 MG PO (09:28)
[2020-04-08 09:37] LABS: Magnesium 2.5 mg/dL (1.6-2.3)
--- NOTE | 2020-04-08 11:38 | PT.IPTN ---
Physical Therapy Treatment Note M2 PT-IP Current Condition Start: 04/07/20 08:31 Freq: NEEDED Status: Active Protocol: Document 04/07/20 14:34 HH (Rec: 04/07/20 15:25 HH [id number]) Physical Therapy Current Condition Current Condition Evaluation Date 04/07/20 Treatment Diagnosis Acute gouty flare, AMS, CKD stage 3, inability to ambulate Onset Date 2 weeks ago Weight Bearing Status Weight Bearing Status Full Weight Bearing Allowed Weight Bearing Amount (enter % x-ray on B ankles= No acute or #) (%) ankle fracture or dislocation. Ankle soft tissue swelling M3 PT-IP Subjective Start: 04/07/20 08:31 Freq: NEEDED Status: Active Protocol: Document 04/08/20 11:12 KS (Rec: 04/08/20 12:50 KS [id number]) Subjective Physical Therapy Visit Type Type Treatment Note Visit Start Time 11:12 Visit Stop Time 11:38 Total Visit Minutes 26 Notes Co-treat w/ OT Number of SENIOR FIREWALL ENGINEER Visits 1 Physical Therapy Visit Comments Patient Comments Pt agreeable to work w/ therapy. Pt requesting PT at 10 AM or 1 PM, specifically not at 11 AM or 2 PM. Patient Goals To be able to amb again and go home. M4 PT-IP Mobility and Gait Start: 04/07/20 08:31 Freq: NEEDED Status: Active Protocol: Document 04/08/20 11:12 KS (Rec: 04/08/20 12:50 KS [id number]) PT-Bed Mobility Assessment Supine to Sit Supine to Sit Contact Guard Assistance,1 Person Assistance,Head of Bed Elevated,Bedrails Scooting Scooting to Edge of Bed Contact Guard Assistance PT-Transfer Assessment Sit to and From Stand Sit to and from Stand Contact Guard Assistance, Minimal Assistance,1 Person Assistance,Use of Upper Extremities Equipment Transfer Assistive Device Gait Belt,Front Wheeled Walker Orthotic/Prosthetic Devices or Brace: No Transfers Transfer Destination Chair Transfer Technique pt ambulated w/ FWW Transfer Ability Level of Assist Contact Guard Assistance,1 Person Assistance,Use of Upper Extremities Comments Mobility Comments Pt in bed upon arrival from therapy and agreed to get into chair. Pt CGA for sup<>sit w/ HOB elevated and CGA for scooting to EOB w/ use of hand rail. Pt CGA to Min A and cues for sit<>stand w/ FWW. Pt then ambulated ~25 ft around room and was able to maintain standing balance w/ elbows rested on counter ~3 min to sink to perform oral care and face washing. Pt then ambulated back to chair and had 1x R knee buckle w/ CGA to Min A to recover. Pt then stand<>sit in chair CGA w/o needed cues for hand placement . Pt left in chair w/ OT in room. Gait Assessment Gait Gait Assistance Required: Contact Guard Assist,Minimum Assistance,1 Person Assist Distance (Feet) 25 Able to Maintain Weight Bearing Status Yes During Gait Assistive Devices Assistive Device Front Wheeled Walker Orthotic/Prosthetic Devices or Brace: No Gait Deviations General Gait Pattern Antalgic,Decreased Stride Length,Decreased Feet Clearance,Flexed Trunk Factors Limiting Gait Function Factors Limiting Gait Function Decreased Activity Tolerance, Decreased Strength,Pain,Poor Balance Comments Gait Comments Pt ambulated ~25 ft total w/ FWW and CGA to Min A. Pt had decreased stride and foot clearance and flexed trunk d/t pain and weakness. Pt had 1x R knee buckling w/ CGA to Min A to recover. Stair Climbing Assessment Comments Stair Climbing Comments Did not assess PT-Balance Assessment Sitting Balance and Reactions Static Sitting Balance Ability Good Dynamic Sitting Balance Ability Fair Standing Balance and Reactions Static Standing Balance Ability Fair Dynamic Standing Balance Ability Fair Device Used FWW M5 PT-IP Objective Assessments Start: 04/07/20 08:31 Freq: NEEDED Status: Active Protocol: Document 04/07/20 14:34 (Rec: 04/07/20 15:25 [id number]) Orientation Orientation/Cognition Level of Alertness Alert Orientation Name,Age,Birthday,Month,Date, Year,Day of Week,Place, Situation Language Function Ability Word Finding Difficulties Safety Awareness Decreased Safety Awareness Memory Description Short Term Impaired,Child Study Team Director Impaired Comments Pt is extremely talkative and does not like to be interrupted. She shows pressured speech with some anxiety. Pt constantly stated Percocet can cause me not talking right Gross Range of Motion Upper Extremity ROM Assessment Within Functional Limits Lower Extremity ROM Assessment Bilaterally Impaired Impairments pt can minimally mobilize her R LE actively/passively only d /t significant pain Strength Upper Extremity Strength Assessment Within Functional Limits Lower Extremity Strength Assessment Bilaterally Impaired Comments Strength Comments pt can minimally mobilize her R LE actively/passively only d /t significant pain Sensation Assessment Comments Sensation Comments painful to touch on B ankles R worse than L noticed moderate non pitting edema at B ankles. Muscle Tone Muscle Tone WNL No M6 PT-IP Treatment Start: 04/07/20 08:31 Freq: NEEDED Status: Active Protocol: Document 04/08/20 11:12 KS (Rec: 04/08/20 12:50 KS [id number]) Physical Therapy Treatment Education Education Provided Safety M7 PT-IP Assessment and Plan Start: 04/07/20 08:31 Freq: NEEDED Status: Active Protocol: Document 04/08/20 11:12 KS (Rec: 04/08/20 12:50 KS [id number]) PT Summary Assessment and Plan Potential Rehabilitation Potential Fair Status of Condition at Evaluation Evolving Summary Impairments Pain,ROM,Strength,Balance, Sensation,Cognition,Bed Mobility,Transfers,Gait, Activity Tolerance Progress Towards Goals Progressing Toward Goals Assessment Summary Pt showed improvement in bed mobility and ambulation today. CGA for sup<>sit w/ HOB elevated, CGA and bed rail for scooting to EOB. CGA to Min A for sit<>stand w/ FWW and ambulation. Pt ambulated ~25 ft around room w/ FWW and maintain standing balance for 3 min w/ countertop for support while performing oral hygiene. Pt ambulated slowly, w/ decreased stride and foot clerance and flexed trunk w/ 1x R knee buckling w/ CGA to Min A to recover. Pt CGA and correct hand placement and use of FWW for stand<>sit. Pt was not using AD at baseline and would benefit from SNF to improve functional mobility and independence. Goals Bed Mobility Goal Contact Guard Assistance Transfer Goal Contact Guard Assistance,Cane, Front Wheeled Walker Gait Goal Contact Guard Assistance,Cane, Front Wheel Walker Gait Distance 50 Other Goals 2STE with AD independently Days to Meet Goals 10 Frequency of Treatment Frequency Of Treatment Once a Day Treatment Plan Physical Therapy Treatment Plan Bed Mobility Training,Transfer Training,Gait Training, Therapeutic Exercise,Balance Retraining,Discharge Planning, Hot or Cold Pack,Neuromuscular Re-ed Other Recommendations and Next Treatment mobility as you Focus BSC transfer Recommendations To Nursing Amount of Assist Needed 2 Person Assist Discharge Recommendations PT Discharge Recommendations Home with Assistance,Home Health,SNF Rehab Equipment Needed for Home Before if pt progress and able to go Discharge home. She will need shower chair, raise toilet seat, grab bars at toilet and shower. Transportation Needs at Discharge Stretcher/Ambulance
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
--- NOTE | 2020-04-08 13:10 | P.PN_ITS ---
Subjective Subjective Date Patient Seen: 04/08/20 Interval history: Alesia Steinberg is a 59-year-old female with a past medical history significant for hypertension, hyperlipidemia, diabetes mellitus type 2, non-insulin using, CKD stage 3, chronic opiate use for arthritis pain in knees, depression and anxiety with benzodiazepine dependence, alcohol abuse with alcohol induced cirrhosis, traumatic brain injury with intracranial hemorrhage status post shawanda hole surgery 2016 in short-term memory impairment and gout who presented to the ED with inability to ambulate due to acute gouty arthropathy. The patient is resting in bedside chair comfortably. Her bilateral ankle pain and right elbow pain have improved significantly. She was up and able to ambulate with physical therapy today. Patient has significant short-term memory loss. She repeatedly states that she is not ready to go home and does not feel ready until Sunday but cannot give a reason as to why she does not feel ready to go home. She denies headache, cough, shortness of breath, chest pain, abdominal pain, nausea, vomiting, fever, chills, dysuria, diarrhea or constipation. She is voiding and eliminating without difficulty. She is up ambulating with assistance. Exam Vital Signs (past 8 hours): - 04/08/20 08:00 04/08/20 11:17 04/08/20 12:00 Temperature 97.1 F L 96.7 F L Pulse Rate 70 77 Respiratory Rate 16 16 Blood Pressure 126/66 112/62 Pulse Oximetry 95 95 95 Oxygen Delivery Method Room Air Oxygen Flow Rate 0 Narrative Exam Narrative: General: Middle-aged female sitting in bedside chair and in no acute distress, well-developed, well-nourished, poor insight, tangential thinking but otherwise appropriately interactive. HEENT: Normocephalic, atraumatic. External ears without defect. Pupils equal, round, and reactive to light. Anicteric sclerae, moist conjunctivae, and no lid lag. Oropharynx free of erythema and cobble stoning with moist mucosa. Large scar across left side of face. Neck: Supple with full range of motion. No jugular venous distension. No lymphadenopathy or thyromegaly. Cardiovascular: Regular rate and rhythm without murmurs, rubs, or gallops appreciated. Pulmonary: Clear to auscultation bilaterally without crackles, wheezes, or rhonchi. Normal respiratory effort with no use of accessory muscles. Abdomen: Soft, obese, bowel sounds present, nontender, nondistended. Extremities: No clubbing or cyanosis. Mild pitting edema to ankles bilaterally. Mild tenderness to palpation of ankles bilaterally and right elbow, improved. Skin: Normal temperature, turgor, and texture; no rash, ulcers, or subcutaneous nodules appreciated. Neurological: Cranial nerves grossly intact. Psychiatric: Poor insight. Tangential thinking. Mildly anxious mood and affect. Alert and oriented to person, place, and time. Objective Labs Result Diagrams: 04/08/20 04:50 04/08/20 04:50 Labs: Laboratory Results - last 24 hr 04/07/20 04/07/20 04/07/20 04:50 04:55 17:28 Sodium Potassium Chloride Carbon Dioxide BUN Creatinine Estimated GFR BUN/Creatinine Ratio Glucose Uric Acid Calcium Magnesium Iron 53 TIBC 203 L % Saturation 26 Transferrin 147 L Ferritin 785 H Vitamin B12 654 04/08/20 04/08/20 04/08/20 04:50 04:50 04:50 Sodium 138 Potassium 3.9 Chloride 102 Carbon Dioxide 27 BUN 58 H Creatinine 1.27 H Estimated GFR 43.1 L BUN/Creatinine Ratio 45.7 H Glucose 146 H Uric Acid 11.6 H Calcium 9.3 Magnesium 2.5 H Iron TIBC % Saturation Transferrin Ferritin Vitamin B12 Assessment & Plan Assessment & Plan narrative: Alesia Steinberg is a 59-year-old female with a past medical history significant for hypertension, hyperlipidemia, diabetes mellitus type 2, non-insulin using, CKD stage 3, chronic opiate use for arthritis pain in knees, depression and anxiety with benzodiazepine dependence, alcohol abuse with alcohol induced cirrhosis, traumatic brain injury with intracranial hemorrhage status post shawanda hole surgery 2016 in short-term memory impairment and gout who presented to the ED with inability to ambulate due to acute gouty arthropathy. 1. Acute gout flare, present on admission. Resolving. -Patient was in severe pain and inability to bear weight due to acute gout flare with involved joints bilateral ankles and right elbow. Patient without erythema but acute tenderness on palpation. No evidence of abscess or cellulitis. -Initial uric acid 15.5. Repeat uric acid trending down now 11.6. Initial WBC 16.8 and trended down 14.8 likely reactive and due to gout flare. Patient now has persistent leukocytosis of 15.2 due to glucocorticoid therapy. -Received methylprednisolone 125 mg in the ED. Received colchicine 1.2 mg x 1. Continue prednisone 40 mg daily for 5-7 days and colchicine 0.6 mg twice daily until flare resolved. Recommend allopurinol in 2 weeks or once acute gout has resolved. -Continue pain control with oxycodone 5-10 mg every 4 hours as needed for severe pain. -Continue physical and occupational therapy evaluation and treatment. 2. Acute metabolic encephalopathy, present on admission. Resolved. -Secondary to medications including diazepam twice daily and hydrocodone 7.5 mg 4 times daily as needed for pain. -Patient is awake and alert. 3. Chronic kidney disease stage 3, present on admission. Stable. -Initial creatinine 1.59. Baseline creatinine unclear but appears to be between 1.5-1.7. -Continue to avoid nephrotoxic agents. -Continue to monitor creatinine daily. 4. Diabetes mellitus type 2, non-insulin using, present on admission. Stable. -Hemoglobin A1c 5.8% on 07/2019. -Continue home metformin 1000 mg daily. -Continue [facility] blood glucose checks and low-dose correctional scale insulin. -Continue heart healthy/carbohydrate consistent diet. 5. Osteoarthritis with knee pain and opiate dependence, chronic, present on admission. Stable. -Patient prescribed hydrocodone-ibuprofen 7.5-200 mg qty #120 per month for osteoarthritis with chronic knee pain. -Continue home gabapentin 100 mg 3 times daily and oxycodone 5-10 mg every 4 hours as needed for acute gout pain as above and monitor for closely for excessive sedation. 6. Depression and anxiety with benzodiazepine dependence, chronic, present on admission. Stable. -patient mildly anxious but mood appears stable. Patient tends to perseverate, has tangential thinking and poor insight. -Continue home lamotrigine 50 mg daily, fluoxetine 40 mg daily and diazepam 5 mg twice daily. 8. Alcohol-induced cirrhosis, chronic, present on admission. Stable. -Initial LFTs: Total bilirubin 2.8, AST 53, ALT 53 and alkaline phosphatase 187. -No evidence of jaundice, hepatomegaly or evidence of ascites. -Continue medications dosed for both hepatic and renal clearance. -Continue furosemide 40 mg daily. 9. Hypertension, chronic, present on admission. Stable. -Continue home losartan 100 mg daily and furosemide 40 mg daily. Discontinued hydrochlorothiazide due to elevated uric acid and gout flare. 10. Hyperlipidemia, chronic, present on admission. Stable. -Continue home simvastatin 20 mg daily at bedtime. 11. Alcohol abuse, chronic, present on admission. Stable. -History of alcohol abuse and dependence with last drink reported as 1 month ago. -Toxicology screen with alcohol level < 10. -No evidence of tremor or withdrawal symptoms. 12. Normocytic anemia, chronic, present on admission. Stable. -Initial hemoglobin 9.7. Baseline hemoglobin 10.8 on 02/09/2020. -Iron profile demonstrated anemia of chronic disease likely due to renal and hepatic disease. -B12 normal at 654. -Continue to monitor hemoglobin and hematocrit daily. 13. 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 Stable. -Patient tends to perseverate, has tangential thinking and overall poor insight. -Continue to reorient and remind frequently. Code status: Full code, sister Ofelia Steinberg is the patient's surrogate decision maker VTE prophylaxis: SQ Heparin Disposition: Patient likely to discharge home with home health tomorrow as gouty arthropathy improving. Quality VTE Deep Vein Thrombosis/Pulmonary Embolism Present on Admission: No
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
[2020-04-08 14:39] LABS: Hematocrit 29.7 % (36-46); Hemoglobin 9.4 g/dL (12.0-16.0); Mean Corpuscular HGB Conc 31.5 % (30-36); Mean Corpuscular Hemoglobin 27.3 PG (26-34); Mean Corpuscular Volume 86.8 fL (80-100); Platelet Count 306 X10^3/uL (150-400); Red Blood Cell Count 3.43 X10^6/uL (4.0-5.2); Red Cell Distribution Width 14.7 % (11.6-14.8); White Blood Cell Count 15.2 X10^3/uL (4.5-11.0)
[2020-04-08 14:42] LABS: Add Manual Diff / Slide Review YES
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
[2020-04-08 15:11] LABS: Neutrophils Absolute Manual 11400 /uL (3000-5900); Platelet Estimate Adequate on smear; RBC Morphology Normal Morphology; Total Cells Counted 100
[2020-04-08] MEDS: NALOXONE 0.4 MG/ML VIAL 0.2 MG IV (17:31)
[2020-04-08] MEDS: FLUMAZENIL 0.5 MG/5 ML MDV 0.1 MG IV (17:53)
[2020-04-08 19:04] LABS: UR Morphine/Opiate cutoff 300 Negative (Negative); Ur Creatinine Normal (Normal); Ur Specific Gravity Normal (Normal); Urine Amphetamines Negative (Negative); Urine Barbiturates Negative (Negative); Urine Benzodiazepines Positive (Negative); Urine Cocaine Negative (Negative); Urine MDMA Negative (Negative); Urine Methadone Negative (Negative); Urine Methamphetamines Negative (Negative); Urine Phencyclidine Negative (Negative); Urine Tetrahydrocannabinol Negative (Negative); Urine pH Normal (Normal)
[2020-04-08 19:05] LABS: Urine Oxycodone Negative (Negative); Urine Tricyclic Antidepressant Positive (Negative)
[2020-04-08] MEDS: SIMVASTATIN 20 MG TABLET PO (21:18)
--- NOTE | 2020-04-08 21:36 | PC.NURSE ---
pt was A&OX3 at the beginning of the shift. talkative and wanting sleeping pills. I gave pt a warm blanket then she fell asleep. around 1700 pt was still sleeping, tried to administer her gabapentin, but pt was very sedated. She was able to open her eyes for a few seconds then drifts back to sleep. pupils were PERRLA. notified Dr. An. administered narcan, pt still sleeping/snoring. Dr. An did a sternum rub and pt woke up, but drift back to sleep. pt got flumazenil and she completely woke up. pt has been up to the [facility], watching tv and eating. 2129: pt is sedated again, but was able to take her own pills. bed alarm active. call light in reach.
[2020-04-09 00:15] VITALS: O2SAT 98
[2020-04-09 00:16] VITALS: BP 152/89; PULSE 78; RESP 20; TEMP 36.3; O2SAT 96
[2020-04-09 04:05] VITALS: O2SAT 95
[2020-04-09 05:00] VITALS: BP 141/76; PULSE 76; RESP 16; TEMP 36.5; O2SAT 94
[2020-04-09 05:28] LABS: Add Manual Diff / Slide Review NO; Basophils Absolute Auto 100 /uL (0-100); Basophils Percent Auto 0.4 % (0-2); Eosinophils Absolute Auto 0 /uL (0-450); Eosinophils Percent Auto 0.2 % (2-4); Hematocrit 30.1 % (36-46); Hemoglobin 9.9 g/dL (12.0-16.0); Lymphocytes Absolute Auto 1900 /uL (1100-4500); Lymphocytes Percent Auto 14.9 % (25-40); Mean Corpuscular HGB Conc 32.8 % (30-36); Mean Corpuscular Hemoglobin 28.2 PG (26-34); Mean Corpuscular Volume 85.8 fL (80-100); Monocytes Absolute Auto 1200 /uL (0-900); Monocytes Percent Auto 9.6 % (3-14); Neutrophils Absolute Auto 9500 /uL (1500-7000); Neutrophils Percent Auto 74.9 % (50-75); Platelet Count 317 X10^3/uL (150-400); Red Cell Distribution Width 14.7 % (11.6-14.8); White Blood Cell Count 12.6 X10^3/uL (4.5-11.0)
[2020-04-09 05:39] LABS: Alanine Aminotransferase 130 IU/L (<35); Albumin 3.7 g/dL (3.5-5.0); Albumin Globulin Ratio 0.9 (1.0-2.8); Alkaline Phosphatase 208 U/L (38-126); Aspartate Aminotransferase 102 IU/L (14-36); BUN Creatinine Ratio 45.3 (6-22); Bilirubin Total 0.6 mg/dL (0.2-1.3); Blood Urea Nitrogen 48 mg/dL (7-17); Calcium 9.5 mg/dL (8.4-10.2); Carbon Dioxide 26 mmol/L (22-32); Chloride 105 mmol/L (98-107); Estimated Glomerular Filt Rate 53.1 mL/min (>60); Globulin 3.9 g/dL (1.7-4.1); Glucose 124 mg/dL (70-100); HEMOLYSIS < 15 (0-50); Magnesium 2.1 mg/dL (1.6-2.3); Potassium 4.1 mmol/L (3.4-5.1); Sodium 140 mmol/L (137-145); Total Protein 7.6 g/dL (6.3-8.2); Uric Acid 9.8 mg/dL (2.5-6.2)
[2020-04-09 08:29] VITALS: BP 147/98; PULSE 76; RESP 15; TEMP 36.1; O2SAT 97
[2020-04-09] MEDS: FLUoxetine 20 MG CAPSULE 60 MG PO (09:58)
[2020-04-09] MEDS: COLCHICINE 0.6 MG TABLET PO (09:58)
[2020-04-09] MEDS: LOSARTAN 50 MG TABLET 100 MG PO (09:58)
[2020-04-09] MEDS: predniSONE 20 MG TABLET 40 MG PO (09:58)
[2020-04-09] MEDS: FUROSEMIDE 40 MG TABLET PO (09:58)
[2020-04-09] MEDS: HEPARIN 5,000 UNIT/ML VIAL 5000 UNIT SUBCUT (09:59)
[2020-04-09] MEDS: METFORMIN HCL 500 MG TABLET 1000 MG PO (10:07)
[2020-04-09] MEDS: OXYCODONE IR 5 MG TABLET PO (10:10)
[2020-04-09] MEDS: lamoTRIgine 25 MG CHEW TABLET 50 MG PO (10:11)
[2020-04-09] MEDS: diazePAM 5 MG TABLET 2.5 MG PO (10:29)
--- NOTE | 2020-04-09 11:28 | PT.IPTN ---
Physical Therapy Treatment Note M2 PT-IP Current Condition Start: 04/07/20 08:31 Freq: NEEDED Status: Active Protocol: Document 04/07/20 14:34 HH (Rec: 04/07/20 15:25 HH [id number]) Physical Therapy Current Condition Current Condition Evaluation Date 04/07/20 Treatment Diagnosis Acute gouty flare, AMS, CKD stage 3, inability to ambulate Onset Date 2 weeks ago Weight Bearing Status Weight Bearing Status Full Weight Bearing Allowed Weight Bearing Amount (enter % x-ray on B ankles= No acute or #) (%) ankle fracture or dislocation. Ankle soft tissue swelling M3 PT-IP Subjective Start: 04/07/20 08:31 Freq: NEEDED Status: Active Protocol: Document 04/09/20 10:30 [facility] (Rec: 04/09/20 13:52 [facility] [id number]) Subjective Physical Therapy Visit Type Type Treatment Note Visit Start Time 10:30 Visit Stop Time 11:28 Total Visit Minutes 58 Notes Co-treat w/ OT Number of ASSURANCE SENIOR MANAGER INSURANCE Visits 2 Physical Therapy Visit Comments Patient Comments I told my frends I was going to a hotel, but I came here instead. I'm on vacation. Patient Goals To be able to amb again and go home. Therapy Pain Assessment Pain When Pain Assessed During Mobility Pain Present Pain Present Pain Reported Location Right Elbow Scale Used no number given Pain Behaviors Calling Out,Crying,Facial Grimacing,Moaning,Wincing Pain Management Techniques Distraction M4 PT-IP Mobility and Gait Start: 04/07/20 08:31 Freq: NEEDED Status: Active Protocol: Document 04/09/20 10:30 [facility] (Rec: 04/09/20 13:52 [facility] [id number]) PT-Transfer Assessment Sit to and From Stand Sit to and from Stand Moderate Assistance,1 Person Assistance,Use of Upper Extremities Equipment Transfer Assistive Device Gait Belt,Front Wheeled Walker Orthotic/Prosthetic Devices or Brace: No Transfers Transfer Destination Chair Transfer Technique pt ambulated w/ FWW Transfer Ability Level of Assist Contact Guard Assistance,1 Person Assistance,Use of Upper Extremities Comments Mobility Comments Pt in chair upon arrival from PT and OT. Pt c/o pain in R elbow. Pt Mod A and cues for hand placement for sit<>stand. Pt then ambulated to toilet CGA x2 for safety and OT assisted pt w/ toileting. Pt then sit<>stand Mod A x1 from toilet and ambulated to sink and was able to maintain standing balance for hand washing ~2 min. Pt then ambulated to w/c CGA and was transferred to stairs for energy conservation. Pt ascended/descended platform ateo x2 w/ CGA and cues for leg sequencing. Pt then ambulated ~200 ft back to room CGA w/ 2x R knee buckling, but able to recover on her own . Pt returned to room and stand<>sit<>sup in bed CGA. Pt appears to be inconsistent w/ her mobility. Pt left in bed w/ all needs in reach. Gait Assessment Gait Gait Assistance Required: Contact Guard Assist,1 Person Assist Distance (Feet) 230 Able to Maintain Weight Bearing Status Yes During Gait Assistive Devices Assistive Device Front Wheeled Walker Orthotic/Prosthetic Devices or Brace: No Gait Deviations General Gait Pattern Antalgic,Decreased Stride Length,Decreased Feet Clearance,Flexed Trunk Factors Limiting Gait Function Factors Limiting Gait Function Decreased Activity Tolerance, Decreased Strength,Pain,Poor Balance Comments Gait Comments Pt ambulated ~230 ft toal w/ FWW and CGA today w/ 2 x R knee buckle. Pt able to recover from R knee buckle w/ CGA. Cues for upright posture. Pt stated she has 2 FWW at home that she agrees to use. Stair Climbing Assessment Evaluation Level of Assist On Stairs Contact Guard Assistance,1 Person Assistance Devices Stair Climbing Assistive Devices Front Wheel Walker Technique/Endurance Stair Climbing Direction Ascend and Descend Stair Climbing Technique Step to Step Number of Steps Climbed 1 Stair Climbing Set # Repetitions (reps) 2 Comments Stair Climbing Comments Pt ascended/descended 1 platform step x2 w/ CGA and FWW and cues for leg sequencing. Pt confirms she can fit her FWW on stairs at home. PT-Balance Assessment Sitting Balance and Reactions Static Sitting Balance Ability Good Dynamic Sitting Balance Ability Fair Standing Balance and Reactions Static Standing Balance Ability Good Dynamic Standing Balance Ability Fair Device Used FWW M5 PT-IP Objective Assessments Start: 04/07/20 08:31 Freq: NEEDED Status: Active Protocol: Document 04/07/20 14:34 [facility] (Rec: 04/07/20 15:25 HH [id number]) Orientation Orientation/Cognition Level of Alertness Alert Orientation Name,Age,Birthday,Month,Date, Year,Day of Week,Place, Situation Language Function Ability Word Finding Difficulties Safety Awareness Decreased Safety Awareness Memory Description Short Term Impaired,Jail Impaired Comments Pt is extremely talkative and does not like to be interrupted. She shows pressured speech with some anxiety. Pt constantly stated Percocet can cause me not talking right Gross Range of Motion Upper Extremity ROM Assessment Within Functional Limits Lower Extremity ROM Assessment Bilaterally Impaired Impairments pt can minimally mobilize her R LE actively/passively only d /t significant pain Strength Upper Extremity Strength Assessment Within Functional Limits Lower Extremity Strength Assessment Bilaterally Impaired Comments Strength Comments pt can minimally mobilize her R LE actively/passively only d /t significant pain Sensation Assessment Comments Sensation Comments painful to touch on B ankles R worse than L noticed moderate non pitting edema at B ankles. Muscle Tone Muscle Tone WNL No M6 PT-IP Treatment Start: 04/07/20 08:31 Freq: NEEDED Status: Active Protocol: Document 04/09/20 10:30 [facility] (Rec: 04/09/20 13:52 [facility] [id number]) Physical Therapy Treatment Education Education Provided Safety M7 PT-IP Assessment and Plan Start: 04/07/20 08:31 Freq: NEEDED Status: Active Protocol: Document 04/09/20 10:30 [facility] (Rec: 04/09/20 13:52 [facility] [id number]) PT Summary Assessment and Plan Potential Rehabilitation Potential Fair Status of Condition at Evaluation Evolving Summary Impairments Pain,ROM,Strength,Balance, Sensation,Cognition,Bed Mobility,Transfers,Gait, Activity Tolerance Assessment Summary Pt required Mod A for sit<> stand from chair and toilet today. Pt ambulated ~230 ft total w/ FWW and CGA w/ x2 R knee buckle, CGA to recover. Pt completed 2 platform steps w/ FWW and CGA. Pt stated she has FWW and has friends who can help her attain toilet raiser and shower chair for at home use. Pt is inconsistent w/ mobility and may require SNF to improve functional mobility. Goals Bed Mobility Goal Contact Guard Assistance Transfer Goal Contact Guard Assistance,Cane, Front Wheeled Walker Gait Goal Contact Guard Assistance,Cane, Front Wheel Walker Gait Distance 50 Other Goals 2STE with AD independently Days to Meet Goals 10 Frequency of Treatment Frequency Of Treatment Once a Day Treatment Plan Physical Therapy Treatment Plan Bed Mobility Training,Transfer Training,Gait Training, Therapeutic Exercise,Balance Retraining,Discharge Planning, Hot or Cold Pack,Neuromuscular Re-ed Other Recommendations and Next Treatment mobility as you Focus BSC transfer Recommendations To Nursing Amount of Assist Needed 2 Person Assist Discharge Recommendations PT Discharge Recommendations Home with Assistance,Home Health,SNF Rehab Equipment Needed for Home Before if pt progress and able to go Discharge home. She will need shower chair, raise toilet seat, grab bars at toilet and shower.
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
[2020-04-09 11:32] VITALS: BP 145/99; PULSE 76; RESP 16; TEMP 36.3; O2SAT 97
--- NOTE | 2020-04-09 13:18 | PM.DS.1 ---
History of Present Illness History of Present Illness Date Patient Seen: 04/07/20 Chief complaint: Knee pain x 1 week Narrative: Written by Eddie GONZALEZ: Ms. Alesia Steinberg is a 59-year-old female with a past medical history significant for alcohol abuse, cirrhosis, diabetes type 2, hypertension colon polyps and an IC bleed with anxiety and depression who presents to the ER via EMS with complaints of bilateral foot and ankle pain. The patient is minimally responsive and unable to repeat main awake to respond appropriately to questions. Information is obtained from the ER provider and medical record. Apparently the patient's symptoms began approximately 2 weeks ago which time she developed left ankle edema which then spread to the right ankle. She describes progressive pain and does state that she has been unable to walk and had to crawl to move about her house. Prior to developing this pain she was seen by Dr. Man who treated the patient for a laceration abscess of the 3rd toe of the left foot in the patient has since completed a course of Keflex. The patient has a previous history left ankle surgery with well-healed surgical scars and reportedly uses orthotics and or ortho boot. The patient was seen at [facility] 4 days ago in the patient is able to state she was told they could not help her. Apparently x-rays were taken and there was no evidence of fracture. Patient is stuporous and unable to is provide much in the way subjective information though she does not have chest pain or shortness of breath and denies abdominal pain or nausea. She does state her last drink was approximately 1 month ago. Upon arrival to the ER the patient's temperature 99.0?, is tachycardic at 1:06 a.m., blood pressure 140/77, respirations in saturating 99% on room air. Venous duplex was completed which finds no DVT. Right ankle x-rays find no acute pathology, left ankle x-ray reveals prior surgical changes in fixation, both x-rays find bilateral soft tissue swelling.. On laboratory analysis the patient has white count of 16.8, hemoglobin 10.3, hematocrit 31.4, platelets of 299. She has elevated monocytes at 2600 and basophils at 200. On chemistry she has normal electrolytes with a BUN of 40 and creatinine 1.59 for BUN creatinine ratio of 33.2. Her bilirubin is 2.8 with an AST of 53, ALT of 53 and alkaline phosphatase of 187. She has elevated CRP at 30.7 in her D-dimer is 658. She has a CK of 469 with CK-MB of 376 for an index of 0.8%. Her troponin is less than 0.012. She has a BNP of 145. Uric acid is found to be 15.5. In the ER the patient received 1 mg Dilaudid and methylprednisolone 125 mg IV. The patient is admitted to the medicine service for acute gout flare. Discharge Providers Provider Date of admission: 04/06/20 19:12 Discharge Date: 04/09/20 Primary care physician: Maggie Man DO Consults: 04/06/20 19:57 Consult to Dietitian, Adult Routine Comment: Reason For Exam: Obese, BMI 35, diabetes, gout Consult to Discharge Planning Routine Comment: 04/06/20 19:58 Consult to Physical Therapy Evaluate & Treat Comment: Gout, bilateral lower extremity swelling Physician Instructions: Evaluate and Treat 04/07/20 16:43 Consult to Occupational Therapy Evaluate & Treat Comment: Physician Instructions: Evaluate and treat 04/08/20 14:55 Consult to Home Health Routine Comment: Reason For Exam: Home health upon DC Discharge provider: Arielle Friend DO Summary Hospital Course Discharge Diagnosis: 1. Acute gout flare, present on admission. Resolving. 2. Acute metabolic encephalopathy, secondary to over-sedation, present on admission. Resolved. 3. Chronic kidney disease stage 3, present on admission. Stable. 4. Diabetes mellitus type 2, non-insulin using, present on admission. Stable. 5. Osteoarthritis with knee pain and opiate dependence, chronic, present on admission. Stable. 6. Depression and anxiety with benzodiazepine dependence, chronic, present on admission. Stable. 7. Alcohol-induced cirrhosis, chronic, present on admission. Stable. 8. Hypertension, chronic, present on admission. Stable. 9. Hyperlipidemia, chronic, present on admission. Stable. 10. Alcohol abuse, chronic, present on admission. Stable. 11. Normocytic anemia, chronic, present on admission. Stable. 12. 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 Stable. Hospital Course: Alesia Steinberg is a 59-year-old female with a past medical history significant for hypertension, hyperlipidemia, diabetes mellitus type 2, non-insulin using, CKD stage 3, chronic opiate use for arthritis pain in knees, depression and anxiety with benzodiazepine dependence, alcohol abuse with alcohol induced cirrhosis, traumatic brain injury with intracranial hemorrhage status post shawanda hole surgery 2016 in short-term memory impairment and gout who presented to the ED with inability to ambulate due to acute gouty arthropathy. 1. Acute gout flare, present on admission. Resolving. -Patient was in severe pain and inability to bear weight due to acute gout flare with involved joints bilateral ankles and right elbow. Patient without erythema but acute tenderness on palpation. No evidence of abscess or cellulitis. -Initial uric acid 15.5. Repeat uric acid trending down now 9.8. Initial WBC 16.8 and trended down 12.6 likely reactive and due to gout flare and now glucocorticoid therapy. -Received methylprednisolone 125 mg in the ED. Received colchicine 1.2 mg x 1. Continued prednisone 40 mg daily for 7 days total and colchicine 0.6 mg twice daily x 1 week or until flare resolved. Recommend repeat uric acid level and start allopurinol in 1-2 weeks once acute gout has completely resolved per PCP. -Continued pain control with oxycodone 5 every 4 hours as needed for severe pain. -Continued heart healthy/carbohydrate consistent and low purine diet. -Continued physical and occupational therapy evaluation and treatment. Patient discharged home with home health for continued physical and occupational therapy 2. Acute metabolic encephalopathy, secondary to over-sedation, present on admission. Resolved. -Secondary to medications including home medications diazepam twice daily and hydrocodone 7.5 mg 4 times daily as needed for pain in addition to Dilaudid 1 mg IV x1 received in ED. -Patient had recurrence of sedation yesterday afternoon 04/08/2020 due to diazepam which was reversed with flumazenil 0.1 mg IV x1. Recommend decreased dose of diazepam 2.5 mg twice daily only as needed for anxiety due to over-sedation per PCP. 3. Chronic kidney disease stage 3, present on admission. Stable. -Initial creatinine 1.59. Baseline creatinine unclear but appears to be between 1.5-1.7. Creatinine improved to 1.06. -Continued to avoid nephrotoxic agents. -Continued to monitor creatinine daily. 4. Diabetes mellitus type 2, non-insulin using, present on admission. Stable. -Hemoglobin A1c 5.8% on 07/2019. -Continued home metformin 1000 mg daily. -Continued [facility] blood glucose checks and low-dose correctional scale insulin. -Continued heart healthy/carbohydrate consistent diet. 5. Osteoarthritis with knee pain and opiate dependence, chronic, present on admission. Stable. -Patient prescribed hydrocodone-ibuprofen 7.5-200 mg qty #120 per month for osteoarthritis with chronic knee pain. -Continued oxycodone 5 mg every 4 hours as needed for acute gout pain as above and monitor for closely for excessive sedation. 6. Depression and anxiety with benzodiazepine dependence, chronic, present on admission. Stable. -Patient mildly anxious but mood appears stable. Patient tends to perseverate, has tangential thinking and poor insight. -Continued home lamotrigine 50 mg daily and fluoxetine 40 mg daily. Recommend decreased dose of diazepam 2.5 mg twice daily only as needed for anxiety due to over sedation per PCP. 7. Alcohol-induced cirrhosis, chronic, present on admission. Stable. -Initial LFTs: Total bilirubin 2.8, AST 53, ALT 53 and alkaline phosphatase 187. LFTs improved slightly but remain elevated due to steatohepatitis. -No evidence of jaundice, hepatomegaly or evidence of ascites. -Continued medications dosed for both hepatic and renal clearance. -Continued furosemide 40 mg daily. 8. Hypertension, chronic, present on admission. Stable. -Continued home losartan 100 mg daily and furosemide 40 mg daily. Discontinued hydrochlorothiazide due to elevated uric acid and gout flare. 9. Hyperlipidemia, chronic, present on admission. Stable. -Continued home simvastatin 20 mg daily at bedtime. 10. Alcohol abuse, chronic, present on admission. Stable. -History of alcohol abuse and dependence with last drink reported as 1 month ago. -Toxicology screen with alcohol level < 10 and urine drug screen positive for benzodiazepine. -No evidence of tremor or withdrawal symptoms. 11. Normocytic anemia, chronic, present on admission. Stable. -Initial hemoglobin 9.7. Baseline hemoglobin 10.8 on 02/09/2020. Hemoglobin 9.9 and stable. -Iron profile demonstrated anemia of chronic disease likely due to renal and hepatic disease. -B12 normal at 654. -Continued to monitor hemoglobin and hematocrit daily. 12. 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 Stable. -Patient tends to perseverate, has tangential thinking and overall poor insight. -Continued to reorient, redirect and remind frequently. Exam Vital Signs (past 8 hours): - 04/09/20 08:29 04/09/20 11:32 Temperature 97.0 F L 97.3 F L Pulse Rate 76 76 Respiratory Rate 15 16 Blood Pressure 147/98 H 145/99 H Pulse Oximetry 97 97 Oxygen Delivery Method Room Air Oxygen Flow Rate 0 Narrative Exam Narrative: General: Middle-aged female sitting in bedside chair and in no acute distress, well-developed, well-nourished, poor insight, tangential thinking but otherwise appropriately interactive. HEENT: Normocephalic, atraumatic. External ears without defect. Pupils equal, round, and reactive to light. Anicteric sclerae, moist conjunctivae, and no lid lag. Oropharynx free of erythema and cobble stoning with moist mucosa. Large scar across left side of face. Neck: Supple with full range of motion. No jugular venous distension. No lymphadenopathy or thyromegaly. Cardiovascular: Regular rate and rhythm without murmurs, rubs, or gallops appreciated. Pulmonary: Clear to auscultation bilaterally without crackles, wheezes, or rhonchi. Normal respiratory effort with no use of accessory muscles. Abdomen: Soft, obese, bowel sounds present, nontender, nondistended. Extremities: No clubbing or cyanosis. Mild pitting edema to ankles bilaterally. Mild tenderness to palpation of right elbow. Tenderness to palpation of bilateral ankles resolved. Skin: Normal temperature, turgor, and texture; no rash, ulcers, or subcutaneous nodules appreciated. Neurological: Cranial nerves grossly intact. Psychiatric: Poor insight. Tangential thinking. Mildly anxious mood and affect but improved. Alert and oriented to person, place, and time. Objective Labs Result Diagrams: 04/09/20 05:00 04/09/20 05:00 Labs: Laboratory Results - last 24 hr 04/08/20 04/08/20 04/09/20 04:50 18:40 05:00 WBC 15.2 H 12.6 H RBC 3.43 L 3.50 L Hgb 9.4 L 9.9 L Hct 29.7 L 30.1 L MCV 86.8 85.8 MCH 27.3 28.2 MCHC 31.5 32.8 RDW 14.7 14.7 Plt Count 306 317 Neut % (Auto) Not Reportable 74.9 Lymph % (Auto) Not Reportable 14.9 L Winkler % (Auto) Not Reportable 9.6 Eos % (Auto) Not Reportable 0.2 L Baso % (Auto) Not Reportable 0.4 Neut # (Auto) 9500 H Lymph # (Auto) Not Reportable 1900 Winkler # (Auto) Not Reportable 1200 H Eos # (Auto) 0 Baso # (Auto) Not Reportable 100 Total Counted 100 Seg Neutrophils % 75.0 H Lymphocytes % (Manual) 18.0 L Monocytes % (Manual) 7.0 Neutrophils # (Manual) 15258 H Platelet Estimate Adequate on smear RBC Morphology Normal morphology Sodium Potassium Chloride Carbon Dioxide BUN Creatinine Estimated GFR BUN/Creatinine Ratio Glucose Uric Acid Calcium Magnesium Total Bilirubin AST ALT Alkaline Phosphatase Total Protein Albumin Globulin Albumin/Globulin Ratio U Opiates 300ng/mL cut Negative Ur Oxycodone Screen Negative Urine Methadone Screen Negative Ur Barbiturates Screen Negative U Tricyclic Antidepress Positive H Ur Phencyclidine Scrn Negative Ur Amphetamines Screen Negative U Methamphetamines Scrn Negative Ur MDMA Scrn (Ecstasy) Negative U Benzodiazepines Scrn Positive H Urine Cocaine Screen Negative U Marijuana (THC) Screen Negative 04/09/20 05:00 WBC RBC Hgb Hct MCV MCH MCHC RDW Plt Count Neut % (Auto) Lymph % (Auto) Winkler % (Auto) Eos % (Auto) Baso % (Auto) Neut # (Auto) Lymph # (Auto) Winkler # (Auto) Eos # (Auto) Baso # (Auto) Total Counted Seg Neutrophils % Lymphocytes % (Manual) Monocytes % (Manual) Neutrophils # (Manual) Platelet Estimate RBC Morphology Sodium 140 Potassium 4.1 Chloride 105 Carbon Dioxide 26 BUN 48 H Creatinine 1.06 H Estimated GFR 53.1 L BUN/Creatinine Ratio 45.3 H Glucose 124 H Uric Acid 9.8 H Calcium 9.5 Magnesium 2.1 Total Bilirubin 0.6 AST 102 H ALT 130 H Alkaline Phosphatase 208 H Total Protein 7.6 Albumin 3.7 Globulin 3.9 Albumin/Globulin Ratio 0.9 L U Opiates 300ng/mL cut Ur Oxycodone Screen Urine Methadone Screen Ur Barbiturates Screen U Tricyclic Antidepress Ur Phencyclidine Scrn Ur Amphetamines Screen U Methamphetamines Scrn Ur MDMA Scrn (Ecstasy) U Benzodiazepines Scrn Urine Cocaine Screen U Marijuana (THC) Screen Discharge Plan Discharge Plan Patient Disposition: Home Health Service Discharge comment: You are being discharged home. You had an acute gout flare. You have been prescribed prednisone 40 mg daily for 3 additional days and colchicine 0.6 mg twice daily (every 12 hours) for 1 week. Please follow-up at your scheduled appointment on 04/13/2020 at 11:45 a.m. with your primary care provider, Dr. Man, regarding your hospitalization and repeat lab work. You will need to be started on allopurinol to prevent future gout flares by Dr. Man in the future once your uric acid level is low and your gout flare has completely resolved. Discharge orders & Medications Prescriptions: New prednisone 20 mg Tablet 40 mg PO DAILY Qty: 3 RF: 0 colchicine 0.6 mg Tablet 0.6 mg PO BID Qty: 14 RF: 0 Continued lidocaine 5 % adhesive patch,medicated 1 patch TOP DAILY Qty: 30 RF: 3 metformin 1,000 mg tablet 1,000 mg PO DAILY Qty: 90 RF: 3 Hold Instructions: per provider metoclopramide HCl 5 mg tablet,disintegrating 5 mg PO BID PRN (Reason: nausea and vomiting) Qty: 30 RF: 0 hydrocodone-ibuprofen 7.5-200 mg tablet 1 tab PO QID PRN (Reason: pain) Qty: 120 RF: 0 losartan 100 mg tablet 100 mg PO DAILY Qty: 90 RF: 3 lamotrigine [Lamictal] 25 mg tablet 50 mg PO QDAY Qty: 180 RF: 1 simvastatin 20 mg tablet 20 mg PO QDAY Qty: 90 RF: 3 furosemide 40 mg tablet 40 mg PO DAILY Qty: 90 RF: 3 fluoxetine [Prozac] 40 mg capsule 40 mg PO QDAY Qty: 90 RF: 1 Glucose: Home Monitoring Kit kit 1 u DIRECTED RF: 0 Changed diazepam 5 mg tablet 2.5 mg PO BID Qty: 60 RF: 2 Discontinued gabapentin 100 mg capsule 100 mg PO TID Qty: 90 RF: 3 cyclobenzaprine 5 mg tablet 5 mg PO TID PRN (Reason: muscle spasm) Qty: 30 RF: 0 hydrochlorothiazide 25 mg tablet 50 mg PO DAILY Qty: 180 RF: 3 Hold Instructions: per provider No Action (DME) lancets [TRUEplus Lancets] 30 gauge misc See Dose Instructions .ROUTE .MEDSUPPLY Qty: 100 RF: 11 (DME) compr.stocking,knee,long,large misc See Dose Instructions .ROUTE .MEDSUPPLY Qty: 2 RF: 1 (DME) blood sugar diagnostic [Blood Glucose Test] strip See Dose Instructions .Route .MEDSUPPLY Qty: 100 RF: 11 Follow up/Referrals: Alfred Perez DPM [Physician] - Maggie Man DO [Primary Care Provider] - 04/13/20 11:45 am (appt:04/13 @ noon with dr man please arrive 15 minutes prior to your scheduled appointment time ) Diet/Activity/Treatments Diet: Low-fat, Low-sodium and Low-cholesterol Diet comment: Low-purine diet Activity: Activity as tolerated with walker or cane Visit Report/Discharge Packet Instructions: How to Choose and Use a Walker, Low-Carbohydrate Diet (Alternative Therapy), Gout, Low-Purine Diet, How to Prevent Falls, Low-Sodium Diet Visit Report Forms: Congestive Heart Failure, Patient Portal/API, Stroke Signs & Symptoms Discharge Data Primary Care Provider: Maggie Man Attending Provider: Steffanie Alejandro Admit Date/Time: 04/06/20 19:12 Quality VTE Deep Vein Thrombosis/Pulmonary Embolism Present on Admission: No
--- NOTE | 2020-04-09 14:31 | PC.NURSE ---
Discharge: Feels ready to d/c home but is anxious about same. Worked with PT and was cleared to go home. Seen by MD and given final instructions. Her discharge instructions were reviewed with her, rx has been e sent to [facility]. Medicaid ride has been set up and they will stop at the pharmacy with her prior to getting her home. Pt leg is much less swollen. Rt foot is less swollen and sl warm only. Rt hip pain is gone. Rt elbow still sl swollen and warm but improved. Has amb several times today to the bathroom, only requires sba, gait is slow but is steady on her feet. Discharge instruction packet given. Questions answered.
--- NOTE | 2020-04-09 15:16 | CM.DPNOTE ---
DC Note DC order placed by Dr Friend, patient agreeable to DC home w/HH and therapy has cleared her for this dispo. Arranged HH RN/PT/OT through ahmet BOONE, Beto at [facility] explained that they are out until next Sunday. Attempted [facility], they do not take [employer]. Attempted [facility], they also are out until next week w/[employer] reimbursement. So placed last call to Beto at [facility] to update that patient still needs HH RN/PT/OT even if start of care is next week. Referral had been faxed, faxed signed DC summary. Updated patient. Coordinated [facility] transportation by completing and faxing [facility] DC form and had assist in arranging [facility] for p/u at 1330, arranged to stop by [facility] per patient's request. Discussed life alert, patient says she will not be able to pay the $105. This EAR NOSE THROAT SURGEON unsure if this is the cost for a WILLARD recipient (?) Unable to investigate further today d/t caseload demands. P: DC home w/Osmin BOONE RN/PT/OT via [facility] Moriah Landaverde EAR [employer]SE THRO[employer] SURGEON
[2020-04-13 08:36] LABS: Lamotrigine Lamictal <1.0 ug/mL (2.0-20.0)
== END 2020-04-09 13:40 | disposition home health service (06) ==
LOC: ED 15:40 → AC 19:13
PROVIDERS: Internal Medicine; Nurse Practitioner Adult Health; Admitting Provider Internal Medicine; Emergency Provider Emergency Medicine; PCP Family Medicine; Referring Provider Emergency Medicine; Visit Provider Internal Medicine
DX: M10.9 Gout, unspecified (principal); M79.671 Pain in right foot; M79.672 Pain in left foot; I10 Essential (primary) hypertension; E11.9 Type 2 diabetes mellitus without complications; Z79.84 Long term (current) use of oral hypoglycemic drugs; K70.30 Alcoholic cirrhosis of liver without ascites; G92 Toxic encephalopathy; M19.90 Unspecified osteoarthritis, unspecified site; F11.20 Opioid dependence, uncomplicated; D64.9 Anemia, unspecified; F32.9 Major depressive disorder, single episode, unspecified; F41.9 Anxiety disorder, unspecified; Z11.59 Encounter for screening for other viral diseases
CPT/HCPCS: 36415; 73610; 80048; 80053; 80175; 80305; 80320; 82140; 82550; 82553; 82607; 82728; 82962; 83540; 83550; 83605; 83735; 83880; 84145; 84484; 84550; 85025; 85379; 86140; 87635; 93005; 93970; 96361; 96372; 96374; 96375; 97116; 97163; 97165; 97530; 97535; 99284; G0378; J1170; J1644; J2310; J2930

== ENCOUNTER → 2020-04-13 12:49 | Outpatient (CLI) | payer OTHER, MEDICAID, SELFPAY ==
[2020-04-06 20:14] VITALS: BMI 34.7
[2020-04-13 13:24] LABS: Add Manual Diff / Slide Review NO; Basophils Absolute Auto 0 /uL (0-100); Basophils Percent Auto 0.2 % (0-2); Eosinophils Absolute Auto 100 /uL (0-450); Eosinophils Percent Auto 0.9 % (2-4); Hematocrit 34.8 % (36-46); Hemoglobin 11.3 g/dL (12.0-16.0); Lymphocytes Absolute Auto 3000 /uL (1100-4500); Lymphocytes Percent Auto 19.6 % (25-40); Mean Corpuscular HGB Conc 32.4 % (30-36); Mean Corpuscular Hemoglobin 26.8 PG (26-34); Mean Corpuscular Volume 82.8 fL (80-100); Monocytes Absolute Auto 1300 /uL (0-900); Monocytes Percent Auto 8.2 % (3-14); Neutrophils Absolute Auto 10900 /uL (1500-7000); Neutrophils Percent Auto 71.1 % (50-75); Platelet Count 479 X10^3/uL (150-400); Red Cell Distribution Width 15.1 % (11.6-14.8); White Blood Cell Count 15.4 X10^3/uL (4.5-11.0)
[2020-04-13 13:44] LABS: Alanine Aminotransferase 99 IU/L (<35); Albumin 4.4 g/dL (3.5-5.0); Alkaline Phosphatase 191 U/L (38-126); Aspartate Aminotransferase 67 IU/L (14-36); BUN Creatinine Ratio 31.5 (6-22); Bilirubin Total 0.6 mg/dL (0.2-1.3); Blood Urea Nitrogen 41 mg/dL (7-17); Calcium 9.8 mg/dL (8.4-10.2); Carbon Dioxide 35 mmol/L (22-32); Chloride 94 mmol/L (98-107); Estimated Glomerular Filt Rate 41.9 mL/min (>60); Globulin 4.3 g/dL (1.7-4.1); Glucose 148 mg/dL (70-100); HEMOLYSIS < 15 (0-50); Potassium 4.1 mmol/L (3.4-5.1); Sodium 138 mmol/L (137-145); Total Protein 8.7 g/dL (6.3-8.2); Uric Acid 11.2 mg/dL (2.5-6.2)
== END ==
PROVIDERS: PCP Family Medicine; Referring Provider Family Medicine; Visit Provider Family Medicine
DX: M10.9 Gout, unspecified (principal)
CPT/HCPCS: 36415; 80053; 84550; 85025

== ENCOUNTER → 2020-08-06 10:48 | Outpatient (CLI) | payer OTHER, MEDICAID, SELFPAY ==
[2020-04-06 20:14] VITALS: BMI 34.7
[2020-08-06 12:14] LABS: Add Manual Diff / Slide Review NO; Basophils Absolute Auto 100 /uL (0-100); Basophils Percent Auto 0.6 % (0-2); Eosinophils Absolute Auto 300 /uL (0-450); Eosinophils Percent Auto 2.8 % (2-4); Hematocrit 38.6 % (36-46); Hemoglobin 12.1 g/dL (12.0-16.0); Lymphocytes Absolute Auto 2900 /uL (1100-4500); Lymphocytes Percent Auto 30.8 % (25-40); Mean Corpuscular HGB Conc 31.4 % (30-36); Mean Corpuscular Hemoglobin 27.5 PG (26-34); Mean Corpuscular Volume 87.4 fL (80-100); Monocytes Absolute Auto 1000 /uL (0-900); Monocytes Percent Auto 10.6 % (3-14); Neutrophils Absolute Auto 5200 /uL (1500-7000); Neutrophils Percent Auto 55.2 % (50-75); Platelet Count 267 X10^3/uL (150-400); Red Blood Cell Count 4.42 X10^6/uL (4.0-5.2); Red Cell Distribution Width 15.4 % (11.6-14.8); White Blood Cell Count 9.4 X10^3/uL (4.5-11.0)
[2020-08-06 12:23] LABS: Hemoglobin A1C% w Est Avg Glu 6.5 % (4.0-6.0)
[2020-08-06 12:34] LABS: Alanine Aminotransferase 48 IU/L (<35); Albumin 4.7 g/dL (3.5-5.0); Albumin Globulin Ratio 1.4 (1.0-2.8); Alkaline Phosphatase 117 U/L (38-126); Aspartate Aminotransferase 47 IU/L (14-36); BUN Creatinine Ratio 31.8 (6-22); Bilirubin Total 0.4 mg/dL (0.2-1.3); Blood Urea Nitrogen 41 mg/dL (7-17); Calcium 10.1 mg/dL (8.4-10.2); Carbon Dioxide 33 mmol/L (22-32); Chloride 98 mmol/L (98-107); Estimated Glomerular Filt Rate 42.3 mL/min (>60); Globulin 3.4 g/dL (1.7-4.1); Glucose 101 mg/dL (70-100); HEMOLYSIS < 15 (0-50); Potassium 4.3 mmol/L (3.4-5.1); Sodium 139 mmol/L (137-145); Total Protein 8.1 g/dL (6.3-8.2); Uric Acid 8.2 mg/dL (2.5-6.2)
== END ==
PROVIDERS: PCP Family Medicine; Referring Provider Family Medicine; Visit Provider Family Medicine
DX: D64.9 Anemia, unspecified (principal); K74.60 Unspecified cirrhosis of liver; M10.9 Gout, unspecified; E11.9 Type 2 diabetes mellitus without complications
CPT/HCPCS: 36415; 80053; 83036; 84550; 85025

== ENCOUNTER → 2020-11-04 10:44 | Outpatient (CLI) | payer OTHER, MEDICAID, SELFPAY ==
[2020-04-06 20:14] VITALS: BMI 34.7
[2020-11-04 11:57] LABS: Add Manual Diff / Slide Review NO; Basophils Absolute Auto 200 /uL (0-100); Basophils Percent Auto 1.2 % (0-2); Eosinophils Absolute Auto 100 /uL (0-450); Eosinophils Percent Auto 0.6 % (2-4); Hematocrit 35.2 % (36-46); Hemoglobin 11.4 g/dL (12.0-16.0); Lymphocytes Absolute Auto 2800 /uL (1100-4500); Mean Corpuscular HGB Conc 32.3 % (30-36); Mean Corpuscular Volume 86.8 fL (80-100); Monocytes Absolute Auto 1900 /uL (0-900); Monocytes Percent Auto 12.9 % (3-14); Neutrophils Absolute Auto 9900 /uL (1500-7000); Neutrophils Percent Auto 66.3 % (50-75); Platelet Count 227 X10^3/uL (150-400); Red Blood Cell Count 4.06 X10^6/uL (4.0-5.2); Red Cell Distribution Width 15.1 % (11.6-14.8); White Blood Cell Count 14.9 X10^3/uL (4.5-11.0)
[2020-11-04 12:18] LABS: Alanine Aminotransferase 47 IU/L (<35); Albumin 4.4 g/dL (3.5-5.0); Albumin Globulin Ratio 1.3 (1.0-2.8); Alkaline Phosphatase 132 U/L (38-126); Aspartate Aminotransferase 52 IU/L (14-36); BUN Creatinine Ratio 27.4 (6-22); Bilirubin Total 1.3 mg/dL (0.2-1.3); Blood Urea Nitrogen 40 mg/dL (7-17); Calcium 10.3 mg/dL (8.4-10.2); Carbon Dioxide 27 mmol/L (22-32); Chloride 94 mmol/L (98-107); Estimated Glomerular Filt Rate 36.5 mL/min (>60); Globulin 3.3 g/dL (1.7-4.1); Glucose 173 mg/dL (80-110); HEMOLYSIS < 15 (0-50); Potassium 3.6 mmol/L (3.4-5.1); Sodium 134 mmol/L (137-145); Total Protein 7.7 g/dL (6.3-8.2); Uric Acid 9.9 mg/dL (2.5-6.2)
== END ==
PROVIDERS: PCP Family Medicine; Referring Provider Family Medicine; Visit Provider Family Medicine
DX: E11.9 Type 2 diabetes mellitus without complications (principal); I10 Essential (primary) hypertension; K74.60 Unspecified cirrhosis of liver; M10.9 Gout, unspecified; N28.9 Disorder of kidney and ureter, unspecified
CPT/HCPCS: 36415; 80053; 84550; 85025

== ENCOUNTER → 2020-12-30 12:10 | Outpatient (CLI) | payer OTHER, MEDICAID, SELFPAY ==
[2020-04-06 20:14] VITALS: BMI 34.7
[2020-12-30 13:50] LABS: Hemoglobin A1C% w Est Avg Glu 6.2 % (4.0-6.0)
[2020-12-30 13:51] LABS: Alanine Aminotransferase 18 IU/L (<35); Albumin 4.4 g/dL (3.5-5.0); Albumin Globulin Ratio 1.3 (1.0-2.8); Alkaline Phosphatase 119 U/L (38-126); Aspartate Aminotransferase 29 IU/L (14-36); BUN Creatinine Ratio 11.3 (6-22); Bilirubin Total 1.1 mg/dL (0.2-1.3); Blood Urea Nitrogen 11 mg/dL (7-17); Calcium 9.7 mg/dL (8.4-10.2); Carbon Dioxide 30 mmol/L (22-32); Chloride 102 mmol/L (98-107); Estimated Glomerular Filt Rate 58.6 mL/min (>60); Globulin 3.5 g/dL (1.7-4.1); Glucose 99 mg/dL (80-110); HEMOLYSIS < 15 (0-50); Potassium 3.1 mmol/L (3.4-5.1); Sodium 140 mmol/L (137-145); Total Protein 7.9 g/dL (6.3-8.2); Uric Acid 6.5 mg/dL (2.5-6.2)
== END ==
PROVIDERS: PCP Family Medicine; Referring Provider Family Medicine; Visit Provider Family Medicine
DX: E11.9 Type 2 diabetes mellitus without complications (principal); M10.9 Gout, unspecified
CPT/HCPCS: 36415; 80053; 83036; 84550

== ENCOUNTER → 2021-01-27 12:05 | Outpatient (CLI) | payer OTHER, MEDICAID, SELFPAY ==
[2020-04-06 20:14] VITALS: BMI 34.7
--- NOTE | 2021-01-27 12:07 | DI.US.S_ITS ---
PROCEDURE: US ABDOMEN LIMITED INDICATIONS: CIRRHOSIS TECHNIQUE: Real-time focused scanning was performed of the abdomen, with image documentation. COMPARISON: [facility], US, US ABDOMEN COMPLETE, 07/25/2018, 9:20. [facility], CT, CT ABDOMEN PELVIS W CON, 09/03/2019, 10:44. FINDINGS: Liver is increased in echogenicity and coarse in appearance. There is irregularity along the hepatic capsule. Possible hypoechoic solid mass within the anterior aspect of the right hepatic lobe adjacent to the gallbladder measuring 3.1 x 1.7 x 3.4 cm. No gallstones identified. Normal gallbladder wall. No pericholecystic fluid. Negative sonographic Scott sign. No biliary dilatation. Pancreas not well seen. IMPRESSION: 1. Cirrhotic hepatic morphology redemonstrated and possible solid mass within the anterior right hepatic lobe. Recommend hepatic protocol MRI for further assessment. Dictated by: Stanislav SALMON Interpreted: Michelle Tinoco MD on 01/27/2021 at 12:58 Transcribed by: JEFFRY on 01/27/2021 at 13:00 Approved by: Michelle Tinoco M.D. on 01/27/2021 at 18:58
== END ==
PROVIDERS: PCP Family Medicine; Referring Provider Internal Medicine Gastroenterology; Visit Provider Internal Medicine Gastroenterology
DX: K74.60 Unspecified cirrhosis of liver (principal)
CPT/HCPCS: 76705

== ENCOUNTER → 2021-02-03 12:44 | Outpatient (CLI) | payer OTHER, MEDICAID, SELFPAY ==
[2020-04-06 20:14] VITALS: BMI 34.7
--- NOTE | 2021-02-03 12:46 | DI.MRI.S_ITS ---
PROCEDURE: MR ABDOMEN WO/W CON INDICATIONS: Abnormal findings on diagnostic imaging of liver TECHNIQUE: Coronal HASTE, axial 2D FLASH in- and [id number]; axial breath-hold T2 FSE. Dynamic axial VIBE during the administration of contrast; post-contrast coronal VIBE or 2D FLASH with fat saturation from the hepatic dome to the iliac crests. Optional diffusion weighted imaging and ADC may be performed. COMPARISON: [facility], , US ABDOMEN LIMITED, 01/27/2021, 11:30. FINDINGS: Image quality: Mildly reduced by patient breathing motion during image acquisition.. Lung bases: No basal pleural effusions. Heart size is normal. Solid organs: Liver is mildly nodular in its margination along the anterior hepatic capsular border. The area of prior ultrasound concern is located at the anterior upper border of the gallbladder fossa, and in this area there is no abnormal enhancement or significant signal abnormality. There is generalized mild heterogeneity of the liver parenchymal signal best seen on diffusion imaging pulse sequence, consistent with a combination of fatty infiltration and cirrhosis. Gallbladder is free of inflammation or calculus. Biliary system is non dilated. Pancreas is normal in morphology. Spleen is normal in size and enhancement. No adrenal nodules. Both kidneys demonstrate normal size and enhancement, without hydronephrosis. Nodes and vessels: No retroperitoneal or mesenteric adenopathy by size criteria. Aorta and inferior vena cava are normal in size. Bowel and peritoneum: Unenhanced bowel loops are normal in caliber. No free fluid. Bones and soft tissues: No ventral hernias. Bone marrow is normal in overall signal. IMPRESSION: Cirrhotic change involving the liver is present, with both fatty infiltration and generalized mild signal heterogeneity with anterior capsular border margination that is nodular consistent with cirrhotic change. A mass lesion is not identified in the area of prior recent sonographic concern, anterior upper gallbladder fossa border. Continued survey imaging utilizing ultrasound with continued attention to the area of sonographic concern is recommended. Currently underlying malignancy or infection is not suspected. Dictated by: Terry Hope M.D. on 02/03/2021 at 15:03 Approved by: Terry Hope M.D. on 02/03/2021 at 15:11
== END ==
PROVIDERS: PCP Family Medicine; Referring Provider Internal Medicine Gastroenterology; Visit Provider Internal Medicine Gastroenterology
DX: R93.2 Abnormal findings on diagnostic imaging of liver and biliary tract (principal); K74.60 Unspecified cirrhosis of liver
CPT/HCPCS: 74183; A9579

== ENCOUNTER → 2021-04-29 11:15 | Outpatient (CLI) | payer OTHER, MEDICAID, SELFPAY ==
[2020-04-06 20:14] VITALS: BMI 34.7
--- NOTE | 2021-04-29 11:21 | DI.RAD.S_ITS ---
PROCEDURE: XR ELBOW LT MIN 3V INDICATIONS: elbow pain and swelling TECHNIQUE: 3 views of the elbow were acquired. COMPARISON: None. FINDINGS: Bones: Moderate degenerative changes of the left elbow involving the radiocapitellar and humeroulnar joints. Age-indeterminate but likely subacute to chronic ossification projects over the anterior aspect of the left elbow seen on the lateral view with associated anterior elbow joint effusion. Marginal osteophytes of the left elbow. Chronic appearing calcifications noted over the medial humeroulnar joint. No dislocation. No suspicious bony lesions. Small posterior olecranon process spur. Soft tissues: Small anterior elbow joint effusion. No suspicious soft tissue calcifications. IMPRESSION: 1. Age-indeterminate but likely subacute-chronic ossification projects over the anterior aspect of the left elbow with associated anterior elbow joint effusion. No definite fracture seen. Findings may represent sequela of moderate elbow joint osteoarthrosis. If there is persistent clinical concern for pathology, consider repeat radiographic evaluation versus advanced imaging using CT or MRI. 2. Small posterior olecranon spurring. Dictated by: Ricardo Roca M.D. on 04/29/2021 at 13:34 Approved by: Ricardo Roca M.D. on 04/29/2021 at 14:02
== END ==
PROVIDERS: PCP Family Medicine; Referring Provider Family Medicine; Visit Provider Family Medicine
DX: M25.522 Pain in left elbow (principal); M25.422 Effusion, left elbow
CPT/HCPCS: 73080

== ENCOUNTER → 2021-08-12 11:15 | Outpatient (CLI) | payer OTHER, MEDICAID, SELFPAY ==
[2021-06-23 15:21] VITALS: BMI 34.7
--- NOTE | 2021-08-12 | DI.US.S_ITS ---
PROCEDURE: US ABDOMEN LIMITED INDICATIONS: Cirrhosis TECHNIQUE: Real-time scanning was performed of the abdominal and retroperitoneal organs, with image documentation. COMPARISON: [facility], , US ABDOMEN LIMITED, 01/27/2021, 11:30. FINDINGS: Liver: Liver shows increased echogenicity and coarsened parenchymal echotexture. There is a focal nodularity in the right hepatic lobe measuring 3.5 x 1.7 x 2.6 cm similar to the prior exam. Portal vein unremarkable. Gallbladder: Sonolucent without evidence cholelithiasis, gallbladder wall thickening or pericholecystic fluid. No sonographic Scott sign. Biliary ducts: Intrahepatic bile ducts are non-dilated. Extrahepatic bile duct caliber measures 5.6 mm. Normal is 6-7 mm or less in diameter, or 10 mm or less post-cholecystectomy. IMPRESSION: Stable hepatic cirrhosis and right hepatic focal nodularity Approved by: Devan Schulte M.D. on 08/12/2021 at 13:03
== END ==
PROVIDERS: PCP Family Medicine; Referring Provider Internal Medicine Gastroenterology; Visit Provider Internal Medicine Gastroenterology
DX: K74.60 Unspecified cirrhosis of liver (principal)
CPT/HCPCS: 76705

== ENCOUNTER 2021-11-22 17:10 | Emergency (ER) | payer OTHER, MEDICAID, SELFPAY ==
[2021-06-23 15:21] VITALS: BMI 34.7
[2021-11-22] VITALS (13 sets, daily range): BP systolic 92–152; BP diastolic 51–76; PULSE 82–102; RESP 22; O2SAT 90–97; BMI 35.5
--- NOTE | 2021-11-22 17:38 | DI.RAD.S_ITS ---
PROCEDURE: XR KNEE RT 3V INDICATIONS: swelling TECHNIQUE: 3 views of the knee were acquired. COMPARISON: [facility], CR, XR KNEE STANDING BILATERAL, 06/26/2017, 14:11. [facility], CR, KNEE 3V LEFT, 05/25/2017, 10:39. FINDINGS: Bones: No fractures or dislocations. No suspicious bony lesions. Stable appearance of knee arthroplasty. Hardware is intact without evidence of hardware fracture or periprosthetic lucency to suggest loosening. Prominent medial condylar exostosis is present. Soft tissues: No joint effusion. No suspicious soft tissue calcifications. IMPRESSION: Knee arthroplasty with hardware intact. No visualized acute fracture or dislocation. However, if clinical concern and/or pain persist, short interval imaging followup in 7-10 days is recommended, as occult injury cannot be definitively excluded. Dictated by: Michelle Tinoco M.D. on 11/22/2021 at 18:37 Approved by: Michelle Tinoco M.D. on 11/22/2021 at 18:38
--- NOTE | 2021-11-22 17:39 | DI.CT.S_ITS ---
PROCEDURE: CT HEAD/BRAIN WO CON INDICATIONS: falls etoh TECHNIQUE: Noncontrast 4.5 mm thick angled axial sections acquired from the foramen magnum to the vertex, with coronal and sagittal reformats. For radiation dose reduction, the following was used: automated exposure control, adjustment of mA and/or kV according to patient size. COMPARISON: Outside Facility, RG, CT HEAD W/O CONTRAST, 07/14/2015, 15:54. Outside Facility, , CT HEAD W/O CONTRAST, 07/15/2015, 14:33. [facility], CT, HEAD WITHOUT CONTRAST, 09/02/2015, 10:06. FINDINGS: Image quality: Excellent. CSF spaces: Basal cisterns are patent. No extra-axial fluid collections. The ventricles are symmetric in size and shape. Brain: No intracranial bleeds or masses. There is cerebral volume loss for age, with resultant ventricular and sulcal prominence. There are periventricular and deep white matter chronic small vessel ischemic changes. There is intracranial internal carotid artery atherosclerosis. Skull and face: Areas of prior left-sided shawanda holes can be seen. Calvarium and visualized facial bones appear intact, without suspicious lesions. Sinuses: Visualized sinuses and mastoids are clear. IMPRESSION: No acute intracranial hemorrhage is seen. No acute intracranial process is seen. Prior left-sided cranial shawanda holes noted. Dictated by: Merritt Hill M.D. on 11/22/2021 at 17:04 Approved by: Merritt Hill M.D. on 11/22/2021 at 17:05
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
[2021-11-22 18:27] LABS: UR Morphine/Opiate cutoff 300 Negative (Negative); Ur Creatinine Normal (Normal); Ur Specific Gravity Normal (Normal); Urine Amphetamines Negative (Negative); Urine Barbiturates Negative (Negative); Urine Benzodiazepines Positive (Negative); Urine Cocaine Negative (Negative); Urine MDMA Negative (Negative); Urine Methadone Negative (Negative); Urine Methamphetamines Negative (Negative); Urine Oxycodone Negative (Negative); Urine Phencyclidine Negative (Negative); Urine Tetrahydrocannabinol Negative (Negative); Urine Tricyclic Antidepressant Negative (Negative); Urine pH Normal (Normal)
[2021-11-22 18:31] LABS: Bacteria Urine None Seen; Culture Indicated Urine Cult Not Indicated; RBC Urine 0-1/HPF (0-5/HPF); Squamous Epithelial Cell Urine 1-5 /HPF (0-5/HPF); WBC Urine 0-1/HPF (0-5/HPF)
[2021-11-22 18:40] LABS: Add Manual Diff / Slide Review NO; Basophils Absolute Auto 100 /uL (0-100); Basophils Percent Auto 0.8 % (0-2); Eosinophils Absolute Auto 200 /uL (0-450); Hematocrit 35.5 % (36-46); Hemoglobin 11.5 g/dL (12.0-16.0); Lymphocytes Absolute Auto 3500 /uL (1100-4500); Lymphocytes Percent Auto 36.2 % (25-40); Mean Corpuscular HGB Conc 32.4 % (30-36); Mean Corpuscular Hemoglobin 29.2 PG (26-34); Mean Corpuscular Volume 90.1 fL (80-100); Monocytes Absolute Auto 1400 /uL (0-900); Monocytes Percent Auto 13.8 % (3-14); Neutrophils Absolute Auto 4600 /uL (1500-7000); Neutrophils Percent Auto 47.2 % (50-75); Platelet Count 232 X10^3/uL (150-400); Red Blood Cell Count 3.94 X10^6/uL (4.0-5.2); White Blood Cell Count 9.8 X10^3/uL (4.5-11.0)
[2021-11-22 18:53] LABS: Alanine Aminotransferase 36 IU/L (<35); Albumin 4.8 g/dL (3.5-5.0); Albumin Globulin Ratio 1.4 (1.0-2.8); Alkaline Phosphatase 86 U/L (38-126); Aspartate Aminotransferase 61 IU/L (14-36); BUN Creatinine Ratio 17.3 (6-22); Bilirubin Total 0.6 mg/dL (0.2-1.3); Blood Urea Nitrogen 18 mg/dL (7-17); Calcium 9.4 mg/dL (8.4-10.2); Carbon Dioxide 23 mmol/L (22-32); Chloride 96 mmol/L (98-107); Estimated Glomerular Filt Rate > 60 mL/min (>60); Ethanol (ETOH) 274 mg/dL; Globulin 3.4 g/dL (1.7-4.1); Glucose 111 mg/dL (80-110); HEMOLYSIS < 15 (0-50); Potassium 3.8 mmol/L (3.4-5.1); Sodium 134 mmol/L (137-145); Total Protein 8.2 g/dL (6.3-8.2)
--- NOTE | 2021-11-22 19:23 | CM.SWNOTE ---
PATTERN CHART WRITER Assessment Note Patient is 61 y/o female who presents to ED via EMS reporting concern for recent fall, patient endorses recent ETOH intake reporting two drinks. Patient's toxicology is positive for Benzodiazapines and BAL of 274. Patient presents as A/Ox4, dysythmic, labile, non congruent with mood. Patient states she is stressed and tired. Patient has hx of Major Depression Disorder, Anxiety, & Alcohol use disorder. PATTERN CHART WRITER is not able to conduct assessment with patient due to BAL and current labile state. Upon entering room, patient is resting and PATTERN CHART WRITER does not wake patient due to her previously reporting she is tired. Per reviewing EMR, RN and SALES REPRESENTATIVE [employer] providing patient care, patient reports concern for her living situation and patient calls several family members with limited to no responses. Patient's PCP is Dr. Prince. Patient has upcoming appt scheduled for 12/27/21. Patient is in BHIP program and sees LEONA Acevedo regularly with upcoming appts on 11/30/21 and 12/24/21. It is the opinion of this PATTERN CHART WRITER that patient will be in need of assistance to safely d/c from ED and get transportation to home. PATTERN CHART WRITER to plan to f/u with patient the following day and seek consent for coordination of care with patient's MH provider. Plan: Patient to d/c to home when medically clear. LEONA Edward
[2021-11-23] VITALS (13 sets, daily range): BP systolic 85–109; BP diastolic 49–59; PULSE 83–101; RESP 16; O2SAT 90–99
[2021-11-23] MEDS: SODIUM CHLORIDE 0.9% 1,000 ML 1000 ML IV (00:26)
--- NOTE | 2021-11-23 03:39 | PC.NURSE ---
up to [facility] without assistance
== END 2021-11-23 05:32 | disposition home or self-care (01) ==
PROVIDERS: Emergency Medicine; Emergency Provider Emergency Medicine; PCP Family Medicine
DX: F10.129 Alcohol abuse with intoxication, unspecified (principal); Y90.8 Blood alcohol level of 240 mg/100 ml or more; S80.11XA Contusion of right lower leg, initial encounter; W19.XXXA Unspecified fall, initial encounter
CPT/HCPCS: 36415; 70450; 73562; 80053; 80305; 80320; 81003; 81015; 85025; 87086; 99284; 99285

== ENCOUNTER → 2022-01-30 10:32 | Outpatient (CLI) | payer OTHER, MEDICAID, SELFPAY ==
[2021-06-23 15:21] VITALS: BMI 34.7
[2022-01-30 11:27] LABS: Add Manual Diff / Slide Review NO; Basophils Absolute Auto 0 /uL (0-100); Basophils Percent Auto 0.5 % (0-2); Eosinophils Absolute Auto 100 /uL (0-450); Eosinophils Percent Auto 1.5 % (2-4); Hematocrit 36.4 % (36-46); Hemoglobin 12.3 g/dL (12.0-16.0); Lymphocytes Absolute Auto 2100 /uL (1100-4500); Lymphocytes Percent Auto 23.6 % (25-40); Mean Corpuscular HGB Conc 33.7 % (30-36); Mean Corpuscular Hemoglobin 29.8 PG (26-34); Mean Corpuscular Volume 88.6 fL (80-100); Monocytes Absolute Auto 1000 /uL (0-900); Monocytes Percent Auto 11.6 % (3-14); Neutrophils Absolute Auto 5500 /uL (1500-7000); Neutrophils Percent Auto 62.8 % (50-75); Platelet Count 217 X10^3/uL (150-400); Red Blood Cell Count 4.11 X10^6/uL (4.0-5.2); Red Cell Distribution Width 14.8 % (11.6-14.8); White Blood Cell Count 8.8 X10^3/uL (4.5-11.0)
[2022-01-30 11:50] LABS: Alanine Aminotransferase 30 IU/L (<35); Albumin 4.7 g/dL (3.5-5.0); Albumin Globulin Ratio 1.5 (1.0-2.8); Alkaline Phosphatase 103 U/L (38-126); Aspartate Aminotransferase 48 IU/L (14-36); BUN Creatinine Ratio 16.7 (6-22); Bilirubin Total 1.2 mg/dL (0.2-1.3); Blood Urea Nitrogen 18 mg/dL (7-17); Calcium 9.8 mg/dL (8.4-10.2); Carbon Dioxide 31 mmol/L (22-32); Chloride 95 mmol/L (98-107); Estimated Glomerular Filt Rate 58 mL/min (>60); Globulin 3.1 g/dL (1.7-4.1); Glucose 111 mg/dL (80-110); HEMOLYSIS < 15 (0-50); Potassium 3.6 mmol/L (3.4-5.1); Sodium 137 mmol/L (137-145); Total Protein 7.8 g/dL (6.3-8.2); Uric Acid 5.6 mg/dL (2.5-6.2)
[2022-01-30 12:02] LABS: Hemoglobin A1C% w Est Avg Glu 5.4 % (4.0-6.0)
[2022-01-30 12:29] LABS: TSH w/ Reflex to FT4 2.34 uIU/mL (0.47-4.68)
[2022-01-30 12:37] LABS: Vitamin B12 728 pg/mL (239-931)
== END ==
PROVIDERS: PCP Family Medicine; Referring Provider Family Medicine; Visit Provider Family Medicine
DX: M10.9 Gout, unspecified (principal); D64.9 Anemia, unspecified; E11.22 Type 2 diabetes mellitus with diabetic chronic kidney disease; N18.30 Chronic kidney disease, stage 3 unspecified
CPT/HCPCS: 36415; 80053; 82607; 83036; 84443; 84550; 85025

== ENCOUNTER → 2022-05-02 07:52 | Outpatient (CLI) | payer OTHER, MEDICAID, SELFPAY ==
[2021-06-23 15:21] VITALS: BMI 34.7
--- NOTE | 2022-05-02 | DI.US.S_ITS ---
PROCEDURE: US ABDOMEN LIMITED INDICATIONS: CIRRHOSIS; LIVER WITH PORTAL VEIN DOPPLER TECHNIQUE: Real-time focused scanning was performed of the abdomen, with image documentation. Color and pulse Doppler interrogation was also performed on the area of interest. COMPARISON: [facility], , US ABDOMEN LIMITED, 08/12/2021, 11:27. FINDINGS: The liver demonstrates prominent size and demonstrates a heterogeneous, nodular echotexture. The previously seen nodule within the anterior liver is not seen on the current study. The main portal vein demonstrates normal size and demonstrates normal appearing, hepatopetal flow. The left and right portal veins are also within normal limits. No significant abnormality of the splenic vein can be seen. IMPRESSION: Enlarged, cirrhotic appearing liver. Normal appearing common normal size portal vein. Dictated by: Merritt Hill M.D. on 05/02/2022 at 8:38 Approved by: Merritt Hill M.D. on 05/02/2022 at 8:40
== END ==
PROVIDERS: PCP Family Medicine; Referring Provider Internal Medicine Gastroenterology; Visit Provider Internal Medicine Gastroenterology
DX: K74.60 Unspecified cirrhosis of liver (principal)
CPT/HCPCS: 76705

== ENCOUNTER 2022-05-02 08:58 | Emergency (ER) | payer OTHER, MEDICAID, SELFPAY ==
[2021-06-23 15:21] VITALS: BMI 34.7
[2022-05-02] VITALS (7 sets, daily range): BP systolic 116–131; BP diastolic 52–85; PULSE 68–88; RESP 18–34; TEMP 37.2; O2SAT 95–98
[2022-05-02 09:30] LABS: Add Manual Diff / Slide Review NO; Basophils Absolute Auto 100 /uL (0-100); Basophils Percent Auto 0.8 % (0-2); Eosinophils Absolute Auto 100 /uL (0-450); Eosinophils Percent Auto 1.4 % (2-4); Hematocrit 37.7 % (36-46); Hemoglobin 12.7 g/dL (12.0-16.0); Lymphocytes Absolute Auto 1300 /uL (1100-4500); Lymphocytes Percent Auto 16.2 % (25-40); Mean Corpuscular HGB Conc 33.6 % (30-36); Mean Corpuscular Hemoglobin 30.4 PG (26-34); Mean Corpuscular Volume 90.6 fL (80-100); Monocytes Absolute Auto 1200 /uL (0-900); Monocytes Percent Auto 15.1 % (3-14); Neutrophils Absolute Auto 5300 /uL (1500-7000); Neutrophils Percent Auto 66.5 % (50-75); Platelet Count 168 X10^3/uL (150-400); Red Blood Cell Count 4.16 X10^6/uL (4.0-5.2); Red Cell Distribution Width 14.5 % (11.6-14.8); White Blood Cell Count 7.9 X10^3/uL (4.5-11.0)
[2022-05-02 09:41] LABS: Alanine Aminotransferase 40 IU/L (<35); Albumin 4.7 g/dL (3.5-5.0); Albumin Globulin Ratio 1.1 (1.0-2.8); Alkaline Phosphatase 142 U/L (38-126); Aspartate Aminotransferase 40 IU/L (14-36); BUN Creatinine Ratio 25.3 (6-22); Bilirubin Total 1.6 mg/dL (0.2-1.3); Blood Urea Nitrogen 41 mg/dL (7-17); Carbon Dioxide 28 mmol/L (22-32); Chloride 98 mmol/L (98-107); Estimated Glomerular Filt Rate 36 mL/min (>60); Globulin 4.2 g/dL (1.7-4.1); Glucose 129 mg/dL (80-110); HEMOLYSIS < 15 (0-50); Lipase 50 U/L (23-300); Potassium 4.5 mmol/L (3.4-5.1); Sodium 140 mmol/L (137-145); Total Protein 8.9 g/dL (6.3-8.2)
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
--- NOTE | 2022-05-02 11:12 | DI.CT.S_ITS ---
PROCEDURE: CT ABDOMEN PELVIS W CON INDICATIONS: abd pain, lower pelvic palp but all over, BABATUNDE, LFTs up TECHNIQUE: After the administration of intravenous contrast, axial sections acquired from the lung bases to the pubic symphysis. Coronal and sagittal reformats were performed. For radiation dose reduction, the following was used: automated exposure control, adjustment of mA and/or kV according to patient size. COMPARISON: [facility], CT, CT ABDOMEN PELVIS W CON, 09/03/2019, 10:44. FINDINGS: Image quality: Excellent. Lung bases: Unremarkable. Heart: No significant findings. ABDOMEN: Liver: The liver has a nodular surface suggesting cirrhotic transformation. Gallbladder: Unremarkable. Biliary ducts: Unremarkable. Pancreas: Unremarkable. Spleen: Unremarkable. Adrenal Glands: Unremarkable. Kidneys and Ureters: Unremarkable. Stomach and Bowel: Stomach, small bowel loops, and colon are unremarkable. The appendix is thin walled and gas filled. There are multiple sigmoid colon diverticular outpouchings present. Focal mucosal thickening and pericolonic fat stranding is present within the left hemipelvis. Trace free fluid is present within the left pericolic gutter. Peritoneum: No pneumoperitoneum. Ventral Wall: No hernias. Abdominal Nodes: No retroperitoneal or mesenteric adenopathy by size criteria. Vessels: Aorta and inferior vena cava are normal in size. PELVIS: Pelvic Organs: Unremarkable. Bladder: Unremarkable. Pelvic Nodes: No enlarged lymph nodes. Miscellaneous: No hernias are seen. Bones: Unremarkable. IMPRESSION: 1. Acute non perforated sigmoid diverticulitis. 2. Nodular liver suggesting cirrhosis. Dictated by: Gita Flower M.D. on 05/02/2022 at 11:50 Approved by: Gita Flower M.D. on 05/02/2022 at 11:57
[2022-05-02 11:28] LABS: Ethanol (ETOH) < 10 mg/dL
[2022-05-02] MEDS: SODIUM CHLORIDE 0.9% 1,000 ML 1000 ML IV (11:44)
[2022-05-02] MEDS: ONDANSETRON 4 MG/2 ML INJ IV (11:44)
[2022-05-02] MEDS: MORPHINE 2 MG/ML INJ IV (11:44)
--- NOTE | 2022-05-02 13:20 | PC.NURSE ---
assessment done by prior nurse/provider. patient given morphine, monitoring for 15min then d/c. [facility] called and verified that ride will be here for patient in 20-60minutes.
[2022-05-02 14:11] LABS: RBC Urine None Seen (0-5/HPF); WBC Urine None Seen (0-5/HPF)
[2022-05-02 14:12] LABS: Bacteria Urine None Seen; Culture Indicated Urine Cult Not Indicated; Squamous Epithelial Cell Urine 5-10 /HPF (0-5/HPF)
== END 2022-05-02 14:05 | disposition home or self-care (01) ==
PROVIDERS: Emergency Provider Emergency Medicine; PCP Family Medicine
DX: K57.92 Diverticulitis of intestine, part unspecified, without perforation or abscess without bleeding (principal); E11.22 Type 2 diabetes mellitus with diabetic chronic kidney disease; N18.30 Chronic kidney disease, stage 3 unspecified; K70.30 Alcoholic cirrhosis of liver without ascites
CPT/HCPCS: 36415; 74177; 76705; 80053; 80320; 81003; 81015; 83690; 85025; 93005; 96374; 96375; 99284; J2270; J2405; Q9967

== ENCOUNTER → 2022-05-12 10:35 | Outpatient (CLI) | payer OTHER, MEDICAID, SELFPAY ==
[2021-06-23 15:21] VITALS: BMI 34.7
[2022-05-12 14:24] LABS: Influenza A - CEPHEID Flu A NEGATIVE (NEGATIVE); Influenza B - CEPHEID Flu B NEGATIVE (NEGATIVE)
[2022-05-12 15:03] LABS: COVID-19 CEPHEID 4-PLEX PCR Negative (Negative)
== END ==
PROVIDERS: PCP Family Medicine; Visit Provider Family Medicine
DX: R05.9 Cough, unspecified (principal); R09.81 Nasal congestion
CPT/HCPCS: 0240U

== ENCOUNTER → 2022-05-12 10:53 | Outpatient (CLI) | payer OTHER, MEDICAID, SELFPAY ==
[2021-06-23 15:21] VITALS: BMI 34.7
[2022-05-12 12:10] LABS: Alanine Aminotransferase 51 IU/L (<35); Albumin 4.5 g/dL (3.5-5.0); Albumin Globulin Ratio 1.3 (1.0-2.8); Alkaline Phosphatase 126 U/L (38-126); Aspartate Aminotransferase 56 IU/L (14-36); BUN Creatinine Ratio 15.7 (6-22); Bilirubin Total 0.7 mg/dL (0.2-1.3); Blood Urea Nitrogen 17 mg/dL (7-17); Calcium 9.9 mg/dL (8.4-10.2); Carbon Dioxide 24 mmol/L (22-32); Chloride 103 mmol/L (98-107); Estimated Glomerular Filt Rate 58 mL/min (>60); Globulin 3.6 g/dL (1.7-4.1); Glucose 100 mg/dL (80-110); HEMOLYSIS < 15 (0-50); Potassium 4.1 mmol/L (3.4-5.1); Sodium 140 mmol/L (137-145); Total Protein 8.1 g/dL (6.3-8.2)
== END ==
PROVIDERS: PCP Family Medicine; Referring Provider Family Medicine; Visit Provider Family Medicine
DX: E11.22 Type 2 diabetes mellitus with diabetic chronic kidney disease (principal); K74.60 Unspecified cirrhosis of liver; N18.30 Chronic kidney disease, stage 3 unspecified; R05.9 Cough, unspecified; R09.81 Nasal congestion
CPT/HCPCS: 0240U; 36415; 80053

== ENCOUNTER → 2022-11-16 08:30 | Outpatient (CLI) | payer OTHER, MEDICAID, SELFPAY ==
[2021-06-23 15:21] VITALS: BMI 34.7
--- NOTE | 2022-11-16 | DI.US.S_ITS ---
PROCEDURE: US ABDOMEN LIMITED INDICATIONS: UNSPECIFIED CIRRHOSIS OF LIVER TECHNIQUE: Real-time scanning was performed of the abdominal and retroperitoneal organs, with image documentation. COMPARISON: [facility], , US ABDOMEN LIMITED, 05/02/2022, 8:32. FINDINGS: Liver: The liver is heterogenous diffusely decreased in attenuation without focal mass lesion. Unremarkable portal vein Gallbladder: Sonolucent without cholelithiasis. No gallbladder wall thickening. No pericholecystic fluid or Scott's sign. Common Bile Duct: 5.4 mm. Pancreas: Unremarkable as visualized IMPRESSION: 1. Hepatic fatty infiltration with parenchymal heterogenous consistent with cirrhosis Approved by: Devan Schulte M.D. on 11/16/2022 at 13:40
== END ==
PROVIDERS: PCP Family Medicine; Referring Provider Internal Medicine Gastroenterology; Visit Provider Internal Medicine Gastroenterology
DX: K74.60 Unspecified cirrhosis of liver (principal)
CPT/HCPCS: 76705

== ENCOUNTER → 2023-02-20 08:08 | Outpatient (CLI) | payer OTHER, MEDICAID, SELFPAY ==
[2021-06-23 15:21] VITALS: BMI 34.7
--- NOTE | 2023-02-20 08:12 | DI.MG.S_ITS ---
BILATERAL DIGITAL SCREENING MAMMOGRAM 3D/2D WITH CAD: 02/20/2023 CLINICAL: Routine screening. Family history of breast cancer. Comparison is made to exams dated: 02/23/2017 mammogram, 02/21/2013 mammogram - [facility], and 01/24/2021 mammogram - [facility]. There are scattered areas of fibroglandular density in both breasts (category b / 25%-50% glandular tissue). Current study was also evaluated with a Computer Aided Detection (CAD) system. There are benign calcifications in both breasts. There also is a biopsy clip in the right breast. No significant masses, calcifications, or other findings are seen in either breast. There has been no significant interval change. IMPRESSION: BENIGN There is no mammographic evidence of malignancy. A 1 year screening mammogram is recommended. Based on the Tyrer Cuzick model (a risk assessment model) the patient's lifetime risk is 9.5% and her 10 year risk is 4.1%. According to the ACR, ACS, and NCCN guidelines, an annual breast MRI exam along with mammogram is recommended if the patient's lifetime risk is 20% or greater. This exam was interpreted at Station ID: [id number]. NOTE: For mammograms, a report in lay terms will be sent to the patient. Approximately 15% of breast malignancies will not be visualized mammographically. In the management of a palpable breast mass, a negative mammogram must not discourage biopsy of a clinically suspicious lesion. Electronically Signed By: Beto gracia/bambi:02/20/2023 09:10:48 letter sent: Normal Exam ACR BI-RADS Category 2: Benign Finding(s) 3342F
== END ==
PROVIDERS: PCP Family Medicine; Referring Provider Family Medicine; Visit Provider Family Medicine
DX: Z12.31 Encounter for screening mammogram for malignant neoplasm of breast (principal); Z80.3 Family history of malignant neoplasm of breast
CPT/HCPCS: 77063; 77067

== ENCOUNTER 2023-04-11 10:57 | Emergency (ER) | payer OTHER, MEDICAID, SELFPAY ==
[2021-06-23 15:21] VITALS: BMI 34.7
[2023-04-11] VITALS (18 sets, daily range): BP systolic 137–181; BP diastolic 59–86; PULSE 53–68; RESP 15–20; TEMP 36.8; O2SAT 96–98; BMI 31.6
--- NOTE | 2023-04-11 11:11 | DI.RAD.S_ITS ---
PROCEDURE: XR CHEST 1V INDICATIONS: chest pain TECHNIQUE: One view of the chest was acquired. COMPARISON: [facility], CHEST 2 VIEW, 09/28/2014, 12:07. [facility], CHEST 2 VIEW, 07/25/2009, 18:07. FINDINGS: Surgical changes and devices: None. Lungs and pleura: Lungs are clear. No pleural effusions or pneumothorax. Mediastinum: Cardiac silhouette is enlarged as before. Bones and chest wall: No suspicious bony lesions. Overlying soft tissues appear unremarkable. IMPRESSION: No acute appearing cardiopulmonary abnormality. Cardiac silhouette is enlarged without definite evidence of pulmonary vascular congestion at this time. Dictated by: Sam Santos M.D. on 04/11/2023 at 12:08 Approved by: Sam Santos M.D. on 04/11/2023 at 12:10
[2023-04-11 11:24] LABS: Add Manual Diff / Slide Review NO; Basophils Absolute Auto 100 /uL (0-100); Basophils Percent Auto 0.7 % (0-2); Eosinophils Absolute Auto 100 /uL (0-450); Eosinophils Percent Auto 1.6 % (2-4); Hematocrit 34.7 % (36-46); Hemoglobin 11.4 g/dL (12.0-16.0); Lymphocytes Absolute Auto 2000 /uL (1100-4500); Lymphocytes Percent Auto 27.6 % (25-40); Mean Corpuscular HGB Conc 32.7 % (30-36); Mean Corpuscular Volume 91.7 fL (80-100); Monocytes Absolute Auto 800 /uL (0-900); Monocytes Percent Auto 11.5 % (3-14); Neutrophils Absolute Auto 4300 /uL (1500-7000); Neutrophils Percent Auto 58.6 % (50-75); Platelet Count 187 X10^3/uL (150-400); Red Blood Cell Count 3.78 X10^6/uL (4.0-5.2); Red Cell Distribution Width 14.5 % (11.6-14.8); White Blood Cell Count 7.4 X10^3/uL (4.5-11.0)
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
[2023-04-11 11:39] LABS: INR 1.1 (0.9-1.3); Prothrombin Time 12.4 SECONDS (10.1-12.7)
[2023-04-11 11:41] LABS: PTT Partial Thromboplastin Tim 33 SECONDS (26-36)
--- NOTE | 2023-04-11 11:47 | DI.RAD.S_ITS ---
PROCEDURE: XR SHOULDER LT MIN 2V INDICATIONS: Left shoulder pain. Suspect rotator cuff injury. TECHNIQUE: 3 views of the shoulder were acquired. COMPARISON: [facility], CR, XR SHOULDER RT MIN 2V, 10/27/2019, 10:43. FINDINGS: Bones: No fractures or dislocations. Superior elevation of the humeral head. Moderate acromioclavicular and mild glenohumeral joint osteoarthritic changes. No suspicious bony lesions. Visualized ribs appear intact. Soft tissues: No suspicious soft tissue calcifications. IMPRESSION: 1. No acute fracture or dislocation. 2. Superior migration of the humeral head consistent with rotator cuff pathology and/or muscle atrophy. If indicated MRI could be performed to further evaluate the soft tissues. 3. Moderate acromioclavicular and mild glenohumeral joint degeneration. Dictated by: Rafiq Hickman M.D. on 04/11/2023 at 12:42 Approved by: Rafiq Hickman M.D. on 04/11/2023 at 12:44
[2023-04-11 11:54] LABS: D Dimer < 215 ng/ml (<500)
[2023-04-11 12:30] LABS: Alanine Aminotransferase 29 IU/L (<35); Albumin 3.9 g/dL (3.5-5.0); Albumin Globulin Ratio 1.3 (1.0-2.8); Alkaline Phosphatase 95 U/L (38-126); Aspartate Aminotransferase 46 IU/L (14-36); BUN Creatinine Ratio 15.7 (6-22); Bilirubin Total 0.6 mg/dL (0.2-1.3); Blood Urea Nitrogen 14 mg/dL (7-17); Calcium 9.5 mg/dL (8.4-10.2); Carbon Dioxide 27 mmol/L (22-32); Chloride 105 mmol/L (98-107); Creatine Kinase 54 U/L (30-135); Estimated Glomerular Filt Rate > 60 mL/min (>60); Globulin 3.1 g/dL (1.7-4.1); Glucose 90 mg/dL (80-110); HEMOLYSIS < 15 (0-50); Lipase 85 U/L (23-300); Magnesium 1.5 mg/dL (1.6-2.3); Potassium 3.9 mmol/L (3.4-5.1); Sodium 138 mmol/L (137-145)
[2023-04-11 12:41] LABS: Troponin I < 0.012 ng/mL (0.01-0.034)
--- NOTE | 2023-04-11 13:38 | PC.NURSE ---
ED IT system down 60 mins.
== END 2023-04-11 13:50 | disposition home or self-care (01) ==
PROVIDERS: Emergency Provider Emergency Medicine; PCP Family Medicine
DX: M67.912 Unspecified disorder of synovium and tendon, left shoulder (principal); R07.9 Chest pain, unspecified; R00.1 Bradycardia, unspecified; Z79.899 Other long term (current) drug therapy
CPT/HCPCS: 36415; 71045; 73030; 80053; 82550; 83690; 83735; 84484; 85025; 85379; 85610; 85730; 93005; 99284

== ENCOUNTER → 2023-04-30 09:35 | Outpatient (CLI) | payer OTHER, MEDICAID, SELFPAY ==
[2021-06-23 15:21] VITALS: BMI 34.7
--- NOTE | 2023-04-30 09:38 | DI.US.S_ITS ---
PROCEDURE: US ABDOMEN LIMITED INDICATIONS: CIRRHOSIS OF LIVER TECHNIQUE: Real-time focused scanning was performed of the abdomen, with image documentation. COMPARISON: [facility], US, US ABDOMEN LIMITED, 11/16/2022, 8:43. FINDINGS: Liver: The liver is heterogenous with a lobular appearance. Echotexture is increased. Gallbladder: No stones or sludge. No wall thickening. No pericholecystic fluid or sonographic Scott's. The gallbladder measures 9.7 cm in length. Biliary: The common bile duct measures 5.9 mm, within normal limits. Pancreas: No ductal dilatation or pancreatic mass. IMPRESSION: 1. Hepatomegaly. 2. Increased echogenicity of the hepatic parenchyma can be seen with cirrhosis or hepatic steatosis. Dictated by: Lennox Gamboa M.D. on 04/30/2023 at 11:45 Approved by: Lennox Gamboa M.D. on 04/30/2023 at 11:48
== END ==
PROVIDERS: PCP Family Medicine; Referring Provider Internal Medicine Gastroenterology; Visit Provider Internal Medicine Gastroenterology
DX: K70.30 Alcoholic cirrhosis of liver without ascites (principal); F10.10 Alcohol abuse, uncomplicated; R16.0 Hepatomegaly, not elsewhere classified
CPT/HCPCS: 76705

== ENCOUNTER → 2023-10-17 11:02 | Outpatient (CLI) | payer OTHER, MEDICAID, SELFPAY ==
[2021-06-23 15:21] VITALS: BMI 34.7
--- NOTE | 2023-10-17 11:03 | DI.US.S_ITS ---
PROCEDURE: US ABDOMEN LIMITED INDICATIONS: CIRRHOSIS. ALCOHOL ABUSE. RIGHT UPPER QUADRANT PAIN. TECHNIQUE: Real-time scanning was performed of the abdominal and retroperitoneal organs, with image documentation. COMPARISON: [facility], , US ABDOMEN LIMITED, 04/30/2023, 9:46. FINDINGS: Liver: Liver is normal in size. Liver parenchyma is coarse with nodular echotexture. No sonographic evidence of a solid mass. Main portal vein is patent. Gallbladder: No stones or sludge. Normal wall thickness measuring 1.6 mm. No pericholecystic fluid Biliary ducts: Intrahepatic bile ducts are non-dilated. Extrahepatic bile duct caliber measures 5.7 mm. Normal is 6-7 mm or less in diameter, or 10 mm or less post-cholecystectomy. Pancreas: Visualized portions of the pancreas demonstrate no sonographic evidence of a mass or pancreatic ductal dilatation. Miscellaneous: No free abdominal fluid. IMPRESSION: 1. Cirrhotic liver morphology. No sonographic evidence of a solid mass. Main portal vein is patent. 2. Normal gallbladder. No biliary ductal dilatation. If clinical symptoms persist, consider cross-sectional imaging for further evaluation. Dictated by: Carlton Wagner M.D. on 10/17/2023 at 19:35 Approved by: Carlton Wagner M.D. on 10/17/2023 at 19:39
[2023-10-17 12:30] LABS: Add Manual Diff / Slide Review NO; Basophils Absolute Auto 0 /uL (0-100); Basophils Percent Auto 0.6 % (0-2); Eosinophils Absolute Auto 100 /uL (0-450); Hematocrit 40.7 % (36-46); Hemoglobin 13.2 g/dL (12.0-16.0); Lymphocytes Absolute Auto 1900 /uL (1100-4500); Lymphocytes Percent Auto 30.3 % (25-40); Mean Corpuscular HGB Conc 32.5 % (30-36); Mean Corpuscular Hemoglobin 28.8 PG (26-34); Mean Corpuscular Volume 88.4 fL (80-100); Monocytes Absolute Auto 600 /uL (0-900); Monocytes Percent Auto 8.8 % (3-14); Neutrophils Absolute Auto 3700 /uL (1500-7000); Neutrophils Percent Auto 58.3 % (50-75); Platelet Count 188 X10^3/uL (150-400); Red Cell Distribution Width 14.5 % (11.6-14.8); White Blood Cell Count 6.4 X10^3/uL (4.5-11.0)
[2023-10-17 12:59] LABS: Alanine Aminotransferase 19 IU/L (<35); Albumin 4.2 g/dL (3.5-5.0); Albumin Globulin Ratio 1.2 (1.0-2.8); Alkaline Phosphatase 97 U/L (38-126); Aspartate Aminotransferase 33 IU/L (14-36); BUN Creatinine Ratio 18.7 (6-22); Bilirubin Total 1.1 mg/dL (0.2-1.3); Blood Urea Nitrogen 14 mg/dL (7-17); Calcium 10.1 mg/dL (8.4-10.2); Carbon Dioxide 30 mmol/L (22-32); Chloride 102 mmol/L (98-107); Estimated Glomerular Filt Rate > 60 mL/min (>60); Globulin 3.4 g/dL (1.7-4.1); Glucose 93 mg/dL (80-110); HEMOLYSIS < 15 (0-50); Potassium 4.1 mmol/L (3.4-5.1); Sodium 138 mmol/L (137-145); Total Protein 7.6 g/dL (6.3-8.2)
[2023-10-18 08:11] LABS: Alpha Fetoprotein 3.4 ng/mL (0.0-9.2)
== END ==
PROVIDERS: PCP Family Medicine; Referring Provider Internal Medicine Gastroenterology; Visit Provider Internal Medicine Gastroenterology
DX: K74.60 Unspecified cirrhosis of liver (principal); F10.10 Alcohol abuse, uncomplicated; R10.9 Unspecified abdominal pain
CPT/HCPCS: 36415; 76705; 80053; 82105; 85025; 85610

== ENCOUNTER → 2023-11-21 10:36 | Outpatient (CLI) | payer OTHER, MEDICAID, SELFPAY ==
[2021-06-23 15:21] VITALS: BMI 34.7
[2023-11-21 11:52] LABS: Hemoglobin A1C% w Est Avg Glu 5.6 % (4.0-6.0)
[2023-11-21 12:13] LABS: Cholesterol 235 mg/dL (140-199); HDL Cholesterol 93 mg/dL (40-60); LDL Cholesterol Calculated 122 mg/dL (<100); Triglycerides 98 mg/dL (35-150)
== END ==
PROVIDERS: PCP Family Medicine; Referring Provider Family Medicine; Visit Provider Family Medicine
DX: E11.9 Type 2 diabetes mellitus without complications (principal)
CPT/HCPCS: 36415; 80061; 83036

== ENCOUNTER 2024-01-16 11:26 | Emergency (ER) | payer OTHER, MEDICAID, SELFPAY ==
[2021-06-23 15:21] VITALS: BMI 34.7
[2024-01-16 11:31] VITALS: BP 170/79; PULSE 68; RESP 20; TEMP 36.8; O2SAT 98
[2024-01-16 11:43] VITALS: BP 176/94; PULSE 69; O2SAT 98
--- NOTE | 2024-01-16 11:43 | DI.CT.S_ITS ---
PROCEDURE: CT ABDOMEN PELVIS W CON INDICATIONS: RLQ ABD PAIN X1MO, BLOATING, HX CIRRHOSIS W/O ASCITES TECHNIQUE: After the administration of intravenous contrast, axial sections acquired from the lung bases to the pubic symphysis. Coronal and sagittal reformats were performed. For radiation dose reduction, the following was used: automated exposure control, adjustment of mA and/or kV according to patient size. COMPARISON: [facility], CT, CT ABDOMEN PELVIS W CON, 05/02/2022, 11:14. FINDINGS: Image quality: Diagnostic. Lower Chest: Bilateral lung bases are clear. Heart size is enlarged, no pericardial effusion. ABDOMEN: Liver: No solid mass. Slightly nodular liver contour is seen. Gallbladder: No radiopaque gallstones or wall thickening. Biliary ducts: No biliary dilation. Pancreas: No ductal dilation. Spleen: Size is within normal limits. Adrenal Glands: No adrenal nodules. Kidneys and Ureters: No hydronephrosis. No solid mass. No complex renal cystic lesion which requires follow up. Stomach and Bowel: There is no bowel obstruction. No gross abnormal bowel wall thickening or mesenteric fat stranding. Mild fecal stasis in the colon is seen. Moderate sigmoid diverticulosis without CT evidence of acute diverticulitis. Appendix is not definitively identified. No inflammatory changes are seen in right lower quadrant abdomen. No abscess collection. Peritoneum: No abnormal intraperitoneal fluid. No free air. Ventral Wall: No significant ventral hernia. Abdominal Nodes: No retroperitoneal or mesenteric adenopathy by size criteria. Vessels: Aorta and inferior vena cava are normal in size. PELVIS: Pelvic Organs: Unremarkable. Bladder: Diffuse bladder wall thickening is noted, no definite bladder wall mass is seen. Pelvic Nodes: No enlarged lymph nodes. Miscellaneous: No inguinal hernias are seen. Bones: No aggressive osseous abnormality. IMPRESSION: 1. Diffuse bladder wall thickening concerning for cystitis. No definite bladder wall mass. No renal stones or hydronephrosis. 2. Colonic diverticulosis without CT evidence of acute diverticulitis. No bowel obstruction. No secondary CT signs of acute appendicitis. No free fluid or free air. 3. Nodular liver contour concerning for cirrhosis. Dictated by: Edmund Duvall M.D. on 01/16/2024 at 12:59 Approved by: Edmund Duvall M.D. on 01/16/2024 at 13:01
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
[2024-01-16 12:00] VITALS: PULSE 64; O2SAT 97
[2024-01-16] MEDS: SODIUM CHLORIDE 0.9% 1,000 ML 1000 ML IV (12:02)
[2024-01-16] MEDS: MORPHINE 4 MG/ML INJ IV (12:02)
[2024-01-16 12:05] LABS: Add Manual Diff / Slide Review NO; Basophils Absolute Auto 0 /uL (0-100); Basophils Percent Auto 0.6 % (0-2); Eosinophils Absolute Auto 200 /uL (0-450); Eosinophils Percent Auto 1.9 % (2-4); Hematocrit 38.5 % (36-46); Hemoglobin 12.5 g/dL (12.0-16.0); Lymphocytes Absolute Auto 2800 /uL (1100-4500); Lymphocytes Percent Auto 32.3 % (25-40); Mean Corpuscular HGB Conc 32.4 % (30-36); Mean Corpuscular Hemoglobin 27.9 PG (26-34); Mean Corpuscular Volume 86.2 fL (80-100); Monocytes Absolute Auto 900 /uL (0-900); Monocytes Percent Auto 10.2 % (3-14); Neutrophils Absolute Auto 4800 /uL (1500-7000); Platelet Count 209 X10^3/uL (150-400); Red Blood Cell Count 4.47 X10^6/uL (4.0-5.2); Red Cell Distribution Width 15.1 % (11.6-14.8); White Blood Cell Count 8.8 X10^3/uL (4.5-11.0)
[2024-01-16 12:17] LABS: Alanine Aminotransferase 25 IU/L (<35); Albumin 4.3 g/dL (3.5-5.0); Albumin Globulin Ratio 1.2 (1.0-2.8); Alkaline Phosphatase 93 U/L (38-126); Ammonia (NH3) < 9 umol/L (9-30); Aspartate Aminotransferase 44 IU/L (14-36); BUN Creatinine Ratio 19.6 (6-22); Blood Urea Nitrogen 19 mg/dL (7-17); Calcium 8.9 mg/dL (8.4-10.2); Carbon Dioxide 27 mmol/L (22-32); Chloride 106 mmol/L (98-107); Estimated Glomerular Filt Rate > 60 mL/min (>60); Ethanol (ETOH) < 10 mg/dL; Globulin 3.6 g/dL (1.7-4.1); Glucose 75 mg/dL (80-110); HEMOLYSIS 81 (0-50); Magnesium 1.7 mg/dL (1.6-2.3); Potassium 4.5 mmol/L (3.4-5.1); Sodium 140 mmol/L (137-145); Total Protein 7.9 g/dL (6.3-8.2)
[2024-01-16 12:39] VITALS: PULSE 64; O2SAT 95
[2024-01-16 13:00] VITALS: BP 176/84; PULSE 60; O2SAT 97
[2024-01-16 13:35] LABS: Urine Volume 10mL (spun)
[2024-01-16 13:37] LABS: Bacteria Urine Many (>30); RBC Urine None Seen (0-5/HPF); WBC Urine 10-30/HPF (0-5/HPF)
[2024-01-16 13:38] LABS: Culture Indicated Urine Specimen Cultured; Squamous Epithelial Cell Urine 1-5 /HPF (0-5/HPF)
--- NOTE | 2024-01-16 14:50 | CM.SWNOTE ---
ED LINING STUFFER Note Jasmin RN calls [facility] to set up ride for patient upon d/c and faxes [facility] the transportation form. The fax did not go through This LINING STUFFER calls [facility] and it is reported patient was given ride to PCP appt and had return transport set up but cancelled it, LINING STUFFER states that patient went to ED after PCP appt. [facility] states they will set up ride for patient to return home from ED and the form is not needed. Nataliia at [facility] reports that [employer] transport will arrive in 30 minutes, LINING STUFFER calls [facility] to confirm. LINING STUFFER informs patient of their ride with [employer] transport that is on the way. Estelle Casiano, [employer]
== END 2024-01-16 14:10 | disposition home or self-care (01) ==
PROVIDERS: Emergency Provider Emergency Medicine; PCP Family Medicine
DX: N30.90 Cystitis, unspecified without hematuria (principal); R10.31 Right lower quadrant pain
CPT/HCPCS: 36415; 74177; 80053; 80320; 81003; 81015; 82140; 83735; 85025; 87077; 87086; 87186; 96361; 96374; 99284; J2270; Q9967

== ENCOUNTER 2025-01-28 11:27 | Emergency (ER) | payer OTHER, SELFPAY ==
[2021-06-23 15:21] VITALS: BMI 34.7
[2025-01-28 11:29] VITALS: BP 193/105; PULSE 74; RESP 18; TEMP 36.3; O2SAT 98
[2025-01-28 11:50] VITALS: BP 217/93
--- NOTE | 2025-01-28 11:53 | DI.CT.S_ITS ---
PROCEDURE: CT LUMBAR SPINE WO CON INDICATIONS: acute on chronic low back pain and sacral pain; falls TECHNIQUE: Noncontrast 3 mm thick sections acquired from the T12 level to the sacrum. Sagittal and coronal reformats were constructed. For radiation dose reduction, the following was used: automated exposure control. COMPARISON: [facility], CT, CT ABDOMEN PELVIS W CON, 01/16/2024, 12:28. [facility], CR, XR PELVIS 1-2V, 01/28/2025, 12:12. FINDINGS: Image quality: Diagnostic Bones: No acute vertebral body compression fractures. No suspicious lytic or blastic bony lesions. Minimal anterolisthesis is seen at L4-L5, without associated pars defects. T12-L1: [id number] loss of disc height is seen. Mild generalized disc bulge is seen. No neural foraminal narrowing or central canal narrowing can be seen. L1-L2: Normal. L2-L3: Mild loss of disc height is seen. Mild to moderate disc bulge is seen. There is a superimposed central disc protrusion. Moderate bilateral neural foraminal narrowing is seen. Minimal central canal narrowing is seen. L3-L4: Mild loss of disc height is seen. Mild to moderate disc bulge is seen, which is eccentric to the left. There is a superimposed central disc protrusion. Mild facet joint hypertrophy is seen. There is [id number] right-sided and moderate left-sided neural foraminal narrowing. Moderate central canal narrowing is seen. L4-L5: Mild loss of disc height is seen. Moderate disc bulge is seen, with a central disc extrusion, with superior migration of the disc material, as demonstrated on series 6, image 33. At least moderate facet hypertrophy is seen. Associated hypertrophy of the ligamentum flavum can be seen. There is at least moderate bilateral neural foraminal narrowing seen. Moderate to severe central canal narrowing is seen. L5-S1: The disc height is relatively well preserved. Mild disc bulge is seen. Mild facet joint hypertrophy is seen. Mild bilateral neural foraminal narrowing is seen. Mild central canal narrowing is seen. Soft tissues: No retroperitoneal masses or hematomas. Visualized aorta is normal in caliber. Colonic diverticulosis is seen, without findings of active diverticulitis. IMPRESSION: No acute bony fracture is identified. Multiple levels of degenerative change can be seen, which are worst at the L4-L5 level, where there is a central disc extrusion. If it would be helpful for clinical management decision making, please consider a dedicated, scheduled lumbar spine MRI for further evaluation (assuming that there is no contraindication). Dictated by: Merritt Hill M.D. on 01/28/2025 at 11:44 Approved by: Merritt Hill M.D. on 01/28/2025 at 11:47
--- NOTE | 2025-01-28 11:53 | DI.RAD.S_ITS ---
PROCEDURE: XR PELVIS 1-2V INDICATIONS: acute on chronic BL low back pain rad to buttocks TECHNIQUE: 1 view(s) of the pelvis acquired. COMPARISON: [facility], CT, CT ABDOMEN PELVIS W CON, 01/16/2024, 12:28. [facility], CT, CT LUMBAR SPINE WO CON, 01/28/2025, 11:59. [facility], CR, XR PELVIS 1-2V, 05/16/2019, 10:31. FINDINGS: Bones: No fractures or dislocations. No suspicious bony lesions. There is etbq-qx-euzaccow superior joint space narrowing seen of both hips, with associated remodeling changes with subchondral sclerosis and osteophyte formation. At least moderate lower lumbar spine degenerative changes are noted. Soft tissues: Visualized bowel gas pattern is normal. No suspicious soft tissue calcifications. IMPRESSION: [id number] bilateral hip degenerative change can be seen. At least moderate lower lumbar spine degenerative change can be seen. Dictated by: Merritt Hill M.D. on 01/28/2025 at 11:42 Approved by: Merritt Hill M.D. on 01/28/2025 at 11:44
[2025-01-28 11:56] VITALS: BP 206/98
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
[2025-01-28] MEDS: OXYCODONE IR 5 MG TABLET 10 MG PO (12:03)
[2025-01-28] MEDS: LIDOCAINE 5% PATCH 1 EACH TOP (12:09)
[2025-01-28 12:36] LABS: Appearance Urine UA CLEAR; Bilirubin Urine UA NEGATIVE (NEGATIVE); Color Urine UA YELLOW; Glucose Urine UA NEGATIVE (Negative); Ketones Urine UA NEGATIVE (NEGATIVE); Leukocyte Esterase Urine UA NEGATIVE (NEGATIVE); Nitrite Urine UA NEGATIVE (Negative); Occult Blood Urine UA NEGATIVE (Negative); Protein Urine UA 2+ (Negative); Specific Gravity Urine UA 1.015 (1.000-1.035); Urobilinogen Urine UA 0.2 E.U./dL (0.2); pH Urine UA 5.5 (4.5-8.0)
[2025-01-28 12:41] LABS: Culture Indicated Urine Cult Not Indicated
[2025-01-28 14:00] VITALS: BP 209/76; PULSE 60; RESP 16; O2SAT 98
== END 2025-01-28 14:12 | disposition home or self-care (01) ==
PROVIDERS: Emergency Provider Physician Assistant; PCP Family Medicine
DX: M51.360 Other intervertebral disc degeneration, lumbar region with discogenic back pain only (principal); M16.0 Bilateral primary osteoarthritis of hip; R03.0 Elevated blood-pressure reading, without diagnosis of hypertension
CPT/HCPCS: 72131; 72170; 81001; 99283; 99284

== ENCOUNTER → 2025-06-29 14:04 | Outpatient (CLI) | payer OTHER, SELFPAY ==
[2021-06-23 15:21] VITALS: BMI 34.7
--- NOTE | 2025-06-29 14:06 | DI.MG.S_ITS ---
MM screening mammo BI: 06/29/2025. BI-RADS: 1 CLINICAL: 64-year old female for bilateral screening mammogram. Tyrer-Cuzick lifetime risk of 4.8%. No personal or first-degree family history of breast cancer. PRIOR EXAMS 02/20/2023, 01/24/2021, 01/18/2021, 12/10/2020, 02/23/2017. MAMMOGRAPHY TECHNIQUE: 2D and 3D (tomosynthesis) digital mammographic views obtained, with additional images as needed for full coverage. Current study was also evaluated with a Computer Aided Detection (CAD) system. DENSITY B. There are scattered areas of fibroglandular density. MAMMOGRAPHY FINDINGS Bilateral: No suspicious mass, asymmetry, microcalcification, or other abnormality seen. IMPRESSION: * No evidence of malignancy. RECOMMENDATIONS Bilateral * Annual screening mammography. OVERALL ASSESSMENT CATEGORY BI-RADS-1: Negative. The [employer] recommends annual screening mammography beginning at age 40 for women with average risk of breast cancer. ELECTRONICALLY SIGNED: Bia Moser M.D. on 07/01/2025 at 04:08:29 AM PT Interpreting Station ID: [id number]
== END ==
LOC: MAMMO 14:06
PROVIDERS: PCP Family Medicine; Referring Provider Family Medicine; Visit Provider Family Medicine
DX: Z12.31 Encounter for screening mammogram for malignant neoplasm of breast (principal)
CPT/HCPCS: 77063; 77067